=== PATIENT | female | born 1955 | race Caucasian/White ===

== ENCOUNTER 2016-12-31 11:10 | Emergency (ER) | payer OTHER, MEDICARE ==
[~2016-12-31] VITALS: Ht 157.5 cm; Wt 45.4 kg
[~2016-12-31 11:10] MED LIST: ADVAIR 250-501 EACH INH; ADVAIR DISKUS 21 DSK INH; ALBUTEROL0.09 MG/A1 INH; ALENDRONATE SOD70 MG PO; AMOX-CLAV 875-1 EACH PO; AVELOX400 MG PO; BACTRIM 400-801 EACH PO; BACTROBAN15 GM TOP; BETAMETHASONE V TOP; BYSTOLIC 5MG5 MG PO; CELEBREX100 M1 PO; CELEBREX100 MG PO; CHANTIX 1 MG1 MG PO; CLOBETASOL PROP15 GM; CLOBETASOL PROP15 GM TOP; CLONAZEPAM0.5 MG PO; CLOTRIMAZOLE-BE15 GM TOP; CYCLOBENZAPRINE10 MG PO; DEXILANT60 M1 PO; DEXILANT60 MG PO; DICYCLOMINE HCL10 M1 PO; DIVALPROEX SOD250 M3 PO; DOXYCYCLINE HY100 M2 PO; ENDOCET 325 MG-1 TA1 PO; FLUOXETINE HYDR20 MG PO; GABAPENTIN TAB600 MG PO; GABAPENTIN300 M2 PO; HYDROCODONE/APA1 TAB PO; HYDROXYZINE HCL25 M2 PO; IMITREX50 MG PO; IPRAT-ALBUT 0.5-3 ML INH; KEFLEX500 MG PO; LEVAQUIN 500MG500 MG PO; LEVAQUIN500 MG PO; LISINOPRIL10 M1 PO; LYRICA150 M1 PO; MELOXICAM7.5 M1 PO; METOPROLOL TART50 MG PO; MIRALAX17 GM PO; MIRAPEX 0.25M0.25 MG PO; MONTELUKAST SOD10 M1 PO; MOVANTIK25 M1 PO; MS CONTIN30 MG PO; NEURONTIN300 M1 PO; NEURONTIN300 MG PO; NORCO 10-325 T1 EACH PO; NORCO 325 MG-101 TAB PO; OLANZAPINE5 MG PO; OPANA ER10 M1 PO; PERCOCET 325 MG1 TA2 PO; PREDNISONE 10MG10 M1 PO; PREDNISONE 20MG20 MG PO; PREDNISONE10 M2 PO; PREMARIN30 GM TOP; PREMARIN30 GM VAG; PROAIR HFA0.09 MG/Ac; PROAIR HFA8.5 GM INH; PROCTOSOL-HC28.35 GM RC; REMERON15 M2 PO; REMERON30 M1 PO; SIMVASTATIN20 M2 PO; SIMVASTATIN20 MG PO; SINGULAIR10 MG PO; SPIRIVA1 PUF INH; SYMBICORT 80/4.1 PUF INH; TEMOVATE TOP; TIZANIDINE HCL2 M1 PO; TRIAMCINOLONE A15 G1 TOP; VIBRAMYCIN 100100 MG PO; VOLTAREN100 GM TOP; ZOHYDRO ER10 MG PO; ZYPREXA5 MG PO
--- NOTE | 2016-12-31 12:10 | ED GENERAL ADULT ---
History of Present Illness General Chief Complaint: Fall Stated Complaint: FALL ? BROKEN NOSE Source: patient Exam Limitations: poor historian Vital Signs & Intake/Output Vital Signs & Intake/Output Vital Signs Date Time Temp Pulse Resp B/P Pulse O2 O2 Flow FiO2 Ox Delivery Rate 12/31 1544 99.2 74 18 150/98 98 Room Air ED Intake and Output 01/01 0000 12/31 1200 Intake Total Output Total Balance Patient 99 lb 15.99 oz Weight Allergies Coded Allergies: Penicillins (Intermediate, HEADACHE AND ITCHY 02/04/16) Sulfa (Sulfonamide Antibiotics) (Intermediate, HEADACHE AND ITCHY 02/04/16) aspirin (Intermediate, ASTHMA 02/04/16) erythromycin base (Intermediate, HIVES 02/04/16) latex (Intermediate, ITCHY AND WEEPY SORES 02/04/16) streptomycin (Intermediate, HEADACHE AND ITCHY 02/04/16) tetanus toxoid, adsorbed (Intermediate, I WAS FREEZING 02/04/16) Reconcile Medications Albuterol Sulfate (Proair Hfa) 8.5 GM HFA.AER.AD 2 PUF INH 4 TIMES/DAY PRN COPD (Reported) Alendronate Sodium 70 MG TABLET 1 TAB PO AppTrigger (Reported) in the morning, at least 30 minutes before the first food, beverage, or medication of the day Amoxicillin/Clavulanate Potass (Amox-Clav 875-125 MG Tablet) 875 MG-125 MG TABLET 1 TAB PO BID PNEUMONIA Betamethasone Valerate 60 ML LOTION 1 ZURDO TOP AD PRN ITCHING (Reported) Dexlansoprazole (Dexilant) 60 MG CAP.DR.BP 1 CAP PO QAM GI (Reported) Diclofenac Sodium (Voltaren) 100 GM GEL..GRAM. 1 GM TOP Q8H MUSCLES/JOINTS ( Reported) apply to affected area(s) Dicyclomine HCl 10 MG CAPSULE 1 CAP PO TID PRN GI (Reported) Divalproex Sodium (Divalproex Sodium ER) 250 MG TAB.ER.24H 1 TAB PO BID MOOD DISORDER (Reported) Estrogens, Conjugated (Premarin) 30 GM CREAM.APPL 1 ZURDO TOP QPM HRT ( Reported) FLUTICASONE/SALMETEROL (Advair 250-50 Diskus) 1 DSK DSK 1 PUFF INH BID ASTHMA/ COPD (Reported) Gabapentin (Neurontin) 300 MG CAPSULE 1 CAP PO TID chronic pain (Reported) Hydrocodone/Acetaminophen ([place] 10-325 Tablet) 1 EACH TABLET 2 TAB PO BID PAIN (Reported) Hydrocodone/Acetaminophen ([place] 10-325 Tablet) 1 EACH TABLET 1 TAB PO DAILY PRN pain (Reported) Hydrocortisone (Proctosol-Hc) 28.35 GM CREAM.APPL 1 ZURDO RC AD PRN HEMORRHOIDS (Reported) apply to affected area(s) Hydroxyzine HCl 25 MG TABLET 2 TAB PO Q8H PRN ITCHING (Reported) Ipratropium/Albuterol Sulfate (Iprat-Albut 0.5-3(2.5) MG/3 Ml) 3 ML AMPUL.NEB 1 AMP INH DAILY PRN COPD (Reported) Lisinopril 10 MG TABLET 1 TAB PO DAILY BP (Reported) Meloxicam 7.5 MG TABLET 1 TAB PO DAILY ANTI-INFLAMMATORY/PAIN (Reported) Mirtazapine (Remeron) 15 MG TABLET 1 TAB PO QPM SLEEP (Reported) Montelukast Sodium 10 MG TABLET 1 TAB PO QPM ALLERGIES/RESPIRATORY (Reported) Naloxegol Oxalate (Movantik) 25 MG TABLET 1 TAB PO DAILY GI (Reported) Oxymorphone HCl (Opana ER) 10 MG TAB.ER.12H 1 TAB PO Q8H PAIN (Reported) Polyethylene Glycol 3350 (Miralax) 17 GRAM/DOSE POWDER 17 GM PO DAILY STOOL SOFTENER (Reported) mix with water, juice, soda, coffee or tea Pramipexole Dihydrochloride Mo (Mirapex 0.25MG) 0.25 MG TABLET 1 TAB PO QPM RESTLESS LEGS (Reported) Reason to Stop at ADM: confusion, visual hallucination Prednisone 10 MG TABLET 1 TAB PO AD COPD exacerbation please take 6 tablets daily on 11/07/16 please take 5 tablets daily from 11/08/16 - 11/10/16 please take 4 tablets daily from 11/11/16 - 11/13/16 please take 3 tablets daily from 11/14/16 - 11/16/16 please take 2 tablets daily from 11/17/16 - 11/19/16 please take 1 tablet daily from 11/20/16 - 11/22/16 then stop Pregabalin (Lyrica) 150 MG CAPSULE 1 CAP PO BID NERVE PAIN (Reported) Simvastatin (Simvastatin*) 20 MG TABLET 1 TAB PO QPM CHOLESTEROL (Reported) Sumatriptan Succinate (Imitrex) 50 MG TAB 1 TAB PO AD PRN MIGRAINES (Reported ) Tiotropium [place] (Spiriva) 18 MCG CAP.W.DEV 1 PUFF INH DAILY ASTHMA/COPD ( Reported) Tizanidine HCl 2 MG TABLET 2.5 TAB PO AD MUSCLE RELAXER (Reported) Triamcinolone Acetonide 15 GM CREAM..G. 1 ZURDO TOP 4 TIMES/DAY SORES (Reported ) Triage Note: PT TO ED WITH C/O NOT SLEEPING AND THEN FALLING ASLEEP ON THE TOILET AND BANGING MY HEAD, LAST NIGHT "I SLEPT ON THE BATHROOM FLOOR, THEN I COULDN'T GET UP, BANGED MY NOSE". Triage Nurses Notes Reviewed? yes Onset: Abrupt Duration: day(s): Timing: recent history HPI: 12/31/16 1 PM 61-year-old female presents to the emergency department with increased falling and head trauma. The patient's been sleepy and has fallen down. She hit her nose yesterday and is complaining of pain and a headache. The onset of the symptoms were abrupt, the duration was just past 24 hours, the severity is significant as her symptoms required her to come to the emergency department for care. She has a past psychiatric history. Past History Travel History Traveled to [place] past 21 day No Medical History Any Pertinent Medical History? 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 History of MRSA: Yes History of VRE: No History of CDIFF: No Pneumonia Vaccine: 02/25/16 Influenza Vaccine: 07/29/16 Surgical History Surgical History: HOWIE SCREW R HEEL PIN R WRIST R HIP/GIRDLE IMPLANT Psychosocial History Who do you live with Patient/Self Services at Home None What is your primary language [place] Tobacco Use: Current Daily Use Daily Tobacco Use Amount/Type: => 5 Cigarettes daily ETOH Use: denies use Illicit Drug Use: denies illicit drug use Family History Family History, If Any: MOTHER Cervical cancer FH: breast cancer FHx: thyroid disease FATHER Osteoarthritis SISTER Family hx-psychiatric condition Hx Contributory? No Review of Systems Review of Systems Constitutional: Denies: fever. EENTM: Denies: visual changes. Respiratory: Denies: short of breath. Cardiovascular: Denies: chest pain. GI: Denies: abdominal pain. Genitourinary: Reports: no symptoms. Musculoskeletal: Reports: no symptoms. Skin: Reports: see HPI. Neurological/Psychological: Reports: see HPI, headache. Hematologic/Endocrine: Denies: bruising, bleeding. Physical Exam Physical Exam General Appearance: sleepy on presentation Head: swelling, nasal area, no septal hematoma Eyes: Bilateral: normal appearance, PERRL, EOMI. Ears, Nose, Throat: normal pharynx, swelling around the nose Neck: normal inspection, supple, full range of motion, no neck pain or midline tenderness. free range of motion of the cervical spine. Respiratory: normal breath sounds, chest non-tender, no respiratory distress Cardiovascular: regular rate/rhythm Peripheral Pulses: 4+ radial (R), 4+ radial (L) Gastrointestinal: non-tender Back: normal range of motion Extremities: normal inspection Neurologic/Psych: awake, oriented x 3 Skin: intact, normal color, warm/dry Core Measures ACS in differential dx? No CVA/TIA Diagnosis: No Severe Sepsis Present: No Septic Shock Present: No Progress Differential Diagnoses I considered the following diagnoses in my evaluation of the patient: [ adverse drug effect, concussion, intracranial bleed, fracture] Plan of Care: Orders Procedure Date/time Status URINE DRUG SCREEN FOR ER ONLY 12/31 1255 Complete TROPONIN LEVEL 12/31 1255 Complete ETHANOL 12/31 1255 Complete COMPREHENSIVE METABOLIC PANEL 12/31 1255 Complete CBC WITHOUT DIFFERENTIAL 12/31 1255 Complete Laboratory Tests 12/31/16 1320: Anion Gap 8, Estimated GFR 50 L, BUN/Creatinine Ratio 25.5 H, Glucose 109 H, Calcium 8.5, Total Bilirubin 0.4, AST 44 H, ALT 39, Alkaline Phosphatase 54, Troponin I < 0.01, Total Protein 6.2 L, Albumin 3.6, Globulin 2.6, Albumin/ Globulin Ratio 1.4, CBC w Diff NO MAN DIFF REQ, RBC 4.05 L, MCV 84.1, MCH 28.0, RDW 16.0 H, MPV 7.1 L, Gran % 72.5, Lymphocytes % 17.3 L, Monocytes % 6.8, Eosinophils % 2.7, Basophils % 0.7, Absolute Granulocytes 3.9, Absolute Lymphocytes 0.9 L, Absolute Monocytes 0.4, Absolute Eosinophils 0.1, Absolute Basophils 0, PUBS MCHC 33.3, Serum Alcohol < 10.0 12/31/16 1312: Urine Opiates Screen 2122.00 H, Methadone Screen < 40, Barbiturate Screen < 60, Ur Phencyclidine Scrn < 6.00, Amphetamines Screen < 100, U Benzodiazepines Scrn < 85, Urine Cocaine Screen < 50, Urine Cannabis Screen < 5.00 Initial ED EKG: none Departure Departure Disposition: HOME OR SELF CARE Condition: Stable Clinical Impression Primary Impression: Head injury Secondary Impressions: Nasal contusion Referrals: FELY VICKERS MD (PCP/Family) Departure Forms: Customer Survey General Discharge Information Comments IMPRESSION: There is no acute intracranial hemorrhage. A few chronic small vessel ischemic changes are visualized within the periventricular white matter. No evidence of acute territorial infarct. There is focal swelling of the right frontal scalp. No acute maxillofacial fracture. DICTATED BY: TIGIST MEDINA MD DATE/TIME DICTATED:12/31/161415 SURVEILLANCE AGENT:NAYELY DATE/TIME TRANSCRIBED:12/31/161415 CONFIDENTIAL, DO NOT COPY WITHOUT APPROPRIATE AUTHORIZATION. <Electronically signed in Other Vendor System> SIGNED BY: TIGIST MEDINA MD 12/31 CT is negative labs unremarkable other than a significantly elevated urine toxicology level for opiates. The patient is awake and alert and oriented 3 reevaluation. I reviewed the results with the patient she will follow-up with her doctor and pain specialist this week Critical Care Note Critical Care Note Critical Care Time: non-applicable
[2016-12-31 13:53] LABS: ABSOLUTE BASOPHIL COUNT 0 /CUMM (0.0-0.2); ABSOLUTE EOSINOPHIL COUNT 0.1 /CUMM (0.0-0.7); ABSOLUTE GRANULOCYTE CT 3.9 /CUMM (1.4-6.5); ABSOLUTE LYMPH COUNT 0.9 /CUMM (1.2-3.4); ABSOLUTE MONOCYTE COUNT 0.4 /CUMM (0.10-0.60); BASOPHIL % 0.7 % (0.0-2.0); EOSINOPHIL % 2.7 % (0-5); GRANULOCYTE % 72.5 % (42.2-75.2); HEMATOCRIT 34.1 % (37-47); MEAN CORPUSCULAR HGB CONC 33.3 G/DL (33.0-37.0); MEAN CORPUSCULAR VOLUME 84.1 FL (81.0-99.0); MEAN PLATELET VOLUME 7.1 FL (7.4-10.4); PLATELET COUNT 347 /CUMM (130-400); RED BLOOD CELL CT 4.05 /CUMM (4.20-5.40); WHITE BLOOD CELL COUNT 5.4 /CUMM (4.8-10.8)
--- NOTE | 2016-12-31 14:26 | CT SCAN REPORT ---
EXAMINATION: CT HEAD AND FACE. CLINICAL INFORMATION: Fall. Evaluate for intracranial hemorrhage. COMPARISON: CT head 08/12/2016. TECHNIQUE: Shoes Hand Sewer images were obtained. CT acquisition of the head and face was performed without intravenous administration of contrast. Data was reformatted into multiplanar images at the acquisition workstation. DLP: 1097.35 mGy-cm. FINDINGS: Head: There is no acute intracranial hemorrhage or abnormal extra-axial collection. No intracranial mass effect or midline shift. Lateral and third ventricles are normal. No hydrocephalus. Larios-white matter differentiation is grossly preserved and there is no evidence of acute territorial infarct. Stimulator electrodes are visualized within the suboccipital region. There is mild focal swelling in the frontal region. Face: Globes are symmetric. There is no retrobulbar hematoma or inflammation. Lamina papyracea and orbital floors are intact. Orbital apices are unremarkable. The nasal bones, zygomatic arches, and pterygoid processes are intact. There is no acute mandibular fracture. There is moderate mucosal thickening within the left maxillary sinus. Chronic changes of a left maxillary uncinectomy. The remainder of the paranasal sinuses are well-aerated. IMPRESSION: There is no acute intracranial hemorrhage. A few chronic small vessel ischemic changes are visualized within the periventricular white matter. No evidence of acute territorial infarct. There is focal swelling of the right frontal scalp. No acute maxillofacial fracture.
[2016-12-31 15:44] VITALS: BP 150/98
[2017-01-21] MEDS ORDERED: GABAPENTIN300 M2 PO (15:45)
[2017-01-21] MEDS ORDERED: HYDROCORTISONE5 M1 PO (15:46)
[2017-01-21] MEDS ORDERED: ADVAIR 250-501 EACH PO (15:47)
[2017-01-21] MEDS ORDERED: CLONAZEPAM0.5 M2 PO (15:48)
[2017-01-21] MEDS ORDERED: SODIUM CHLORIDE PO (15:50)
[2017-01-21] MEDS ORDERED: NORCO PO (15:51)
[2017-01-21] MEDS ORDERED: SERTRALINE HCL25 MG PO (15:52)
[2017-01-21] MEDS ORDERED: OPANA10 M1 PO (15:52)
== END 2016-12-31 15:46 ==
LOC: ERH 11:10
PROVIDERS: Emergency Medicine
DX: S09.90XA Unspecified injury of head, initial encounter (principal); S00.33XA Contusion of nose, initial encounter; W19.XXXA Unspecified fall, initial encounter
CPT/HCPCS: 80307; G0480

== ENCOUNTER 2017-01-26 01:17 | Inpatient (IN) | payer OTHER, MEDICARE ==
[~2017-01-26] VITALS: Ht 157.5 cm; Wt 45.4 kg
[~2017-01-26 01:17] MED LIST changes: +ADVAIR 250-501 EACH PO; +CLONAZEPAM0.5 M2 PO; +HYDROCORTISONE5 M1 PO; +NORCO PO; +OPANA10 M1 PO; +SERTRALINE HCL25 MG PO; +SODIUM CHLORIDE PO
--- NOTE | 2017-01-26 08:18 | Operative Report ---
Operative/Inv Procedure Report Surgery Date: 01/26/17 Name of Procedure: Removal of bone spur right foot, exostectomy Pre-Operative Diagnosis: Exostosis right foot Post-Operative Diagnosis: Same Estimated Blood Loss: scant Surgeon/Research Librarian: CHECO Anesthesia: general endotracheal tube IV Fluids: See anesthesia record Implants: None Drains: None Specimens: Bone right foot Complications: None Condition: Stable Operative Indication: Patient is a 60-year-old female whose been bothered by a bone spur on the medial aspect of her right foot for years. She was to have it removed due to pain with shoewear. Risks and benefits the procedure discussed the patient detail and she wished to proceed. Operative/Procedure Note Note: Once informed consent was obtained and the correct limb was identified patient brought to operative placed on table supine position. Administration of general endotracheal anesthesia the right foot was prepped and draped in sterile fashion. To begin the procedure a skin incision was made directly over the exostosis. Sharp dissection was carried down through the skin. The exostosis was easily palpated and using osteotome was removed without complication. The wound was irrigated. A few days tissues closed with 3-0 Vicryl sutures and skin was closed with 3-0 nylon interrupted sutures. Sterile dressing was applied and the patient was awakened taken recovery in stable condition.
--- NOTE | 2017-01-26 14:23 | Admission Core Measures ---
Admission Lab Results I reviewed the following labs: Laboratory Tests 01/26 01/26 01/26 UNK UNK UNK Chemistry Sodium (137 - 145 mmol/L) Pending 135 L Cancelled Potassium (3.5 - 5.1 mmol/L) Pending 3.7 Cancelled Chloride (98 - 107 mmol/L) Pending 104 Cancelled Carbon Dioxide (22 - 30 mmol/L) Pending 25 Cancelled Anion Gap (5 - 16) Pending 6 Cancelled BUN Pending Creatinine Pending BUN/Creatinine Ratio Pending Admission Meds I reviewed the following Meds: Current Medications Sig/Isacc Start time Last Medication Dose Stop Time Status Admin Acetaminophen/ 4 TAB BID 01/26 220 UNVr Hydrocodone Bitart (Vicodin) Albuterol Sulfate 2 PUF 4 TIMES/DAY PRN 01/26 1345 UNVr (Ventolin) Atorvastatin Calcium 10 MG 1700 01/26 1700 UNVr (Lipitor) Budesonide/ 2 PUF BID 01/26 220 UNVr Formoterol Fumarate (Symbicort) Clonazepam 0.5 MG .[NIGHTLY] 01/26 1400 UNVr (KlonoPIN) 02/02 1359 Dicyclomine HCl 10 MG TID PRN 01/26 1400 UNVr (Bentyl) Divalproex Sodium 250 MG BID 01/26 2200 UNVr (Depakote ER) Gabapentin 300 MG TID 01/26 1600 UNVr (Neurontin) Gabapentin 300 MG TID 01/26 1600 UNVr (Neurontin) Hydrocortisone 5 MG DAILY 01/27 1000 UNVr (Hydrocortisone) Hydromorphone HCl 50 MG Q24H PRN 01/26 1430 AC (Dilaudid) Sodium Chloride 45 ML (Normal Saline 50ML Bag) Hydromorphone HCl 6 MG Q6P PRN 01/26 1415 UNVr (Dilaudid) Lisinopril 10 MG DAILY 01/27 1000 UNVr (Prinivil) Montelukast Sodium 10 MG QPM 01/26 2200 UNVr (Singulair) Omeprazole 40 MG DAILY AC 01/27 0700 UNVr (Prilosec) Polyethylene Glycol 17 GM DAILY 01/27 1000 UNVr (Miralax) Pregabalin 150 MG BID 01/26 2200 UNVr (Lyrica) Sertraline HCl 25 MG DAILY 01/27 1000 UNVr (Zoloft) Sumatriptan Succinate 50 MG DAILY NEEDED 01/26 1400 UNVr (Imitrex Tab) Tiotropium [place] 1 PUF DAILY 01/27 1000 UNVr (Spiriva) Tizanidine HCl 5 MG .[AD] 01/26 1400 UNVr (Zanaflex) Acute Coronary Syndrome Inclusion Criteria ACS Diagnosis No Inpatient Core Measures LDL Reminder: If No, please order W/I first 24hr of stay Congestive Heart Failure Inclusion Criteria CHF Diagnosis No Cerebrovascular accident Inclusion Criteria CVA/TIA Diagnosis No Inpatient Core Measures Bedside Swallow Eval Reminder: If BSE failed, place ST order Antithrombotic Reminder: Order Antithrombotic Medication by end of day 2 Antithrombotic Reminder: Document Reason Antithrombotic Not ordered by end of day 2 AFIB/Flutter Reminder: If Present, add to problem list AFIB/Flutter Reminder: Order Anticoag Medication for pts with AFIB/Flutter Atherosclerosis Reminder: If Present, add to problem list LDL Reminder: If No, please order W/I first 24hr of stay PT Order Reminder: If No, please order Venous thromboembolism Inpatient Core Measures VTE Risk Factors: Age > 40, Surgery VTE Prophylaxis Ordered Inpt Mechanical (ALPS/TEDS) No [facility] VTE prophylaxis d/t No contraindications No VTE Pharm Prophylaxis d/t Surgical contraindication Inclusion Criteria - Per Current guidelines, there needs to be overlap - treatment for the first 5 days of Warfarin therapy. - Parenteral Anticoagulation (IV or SC) needs to be - given along with Warfarin therapy. VTE Diagnosis No VTE Type NONE VTE Confirmed by (Test) NONE Problem List As ranked by this Provider includes Assessment & Plan 1. Cervical spinal stenosis HOME MEDS Home Med List Albuterol Sulfate (Proair Hfa) 8.5 GM HFA.AER.AD 2 PUF INH 4 TIMES/DAY PRN COPD (Reported) Alendronate Sodium 70 MG TABLET 1 TAB PO QMON BONE HEALTH (Reported) Betamethasone Valerate 60 ML LOTION 1 ZURDO TOP AD PRN ITCHING (Reported) Clonazepam 0.5 MG TABLET 1 TAB PO NIGHTLY SLEEP (Reported) Dexlansoprazole (Dexilant) 60 MG CAP.DR.BP 1 CAP PO QAM GI (Reported) Diclofenac Sodium (Voltaren) 100 GM GEL..GRAM. 1 GM TOP Q8H MUSCLES/JOINTS ( Reported) Dicyclomine HCl 10 MG CAPSULE 1 CAP PO TID PRN GI (Reported) Divalproex Sodium (Divalproex Sodium ER) 250 MG TAB.ER.24H 1 TAB PO BID MOOD DISORDER (Reported) Estrogens, Conjugated (Premarin) 30 GM CREAM.APPL 1 ZURDO TOP QPM HRT ( Reported) FLUTICASONE/SALMETEROL (Advair 250-50 Diskus) 1 DSK DSK 1 PUFF INH BID ASTHMA/ COPD (Reported) Fluticasone/Salmeterol ([place]air 250-50 Diskus) 250 MCG-50 MCG/DOSE BLST.W.DEV 1 PUFF PO BID COPD (Reported) Gabapentin (Neurontin) 300 MG CAPSULE 1 CAP PO TID chronic pain (Reported) Gabapentin 300 MG CAPSULE 1 TAB PO TID MENTAL HEALTH (Reported) Hydrocodone/Acetaminophen ([place] 10-325 Tablet) 1 EACH TABLET 2 TAB PO BID PAIN (Reported) Hydrocodone/Acetaminophen ([place] 10-325 Tablet) 1 EACH TABLET 1 TAB PO DAILY PRN pain (Reported) Hydrocortisone (Proctosol-Hc) 28.35 GM CREAM.APPL 1 ZURDO RC AD PRN HEMORRHOIDS (Reported) Hydrocortisone 5 MG TABLET 1 TAB PO DAILY PITUITARY (Reported) Hydroxyzine HCl 25 MG TABLET 2 TAB PO Q8H PRN ITCHING (Reported) Ipratropium/Albuterol Sulfate (Iprat-Albut 0.5-3(2.5) MG/3 Ml) 3 ML AMPUL.NEB 1 AMP INH DAILY PRN COPD (Reported) Lisinopril 10 MG TABLET 1 TAB PO DAILY BP (Reported) Meloxicam 7.5 MG TABLET 1 TAB PO DAILY ANTI-INFLAMMATORY/PAIN (Reported) Mirtazapine (Remeron) 15 MG TABLET 1 TAB PO QPM SLEEP (Reported) Montelukast Sodium 10 MG TABLET 1 TAB PO QPM ALLERGIES/RESPIRATORY (Reported) Naloxegol Oxalate (Movantik) 25 MG TABLET 1 TAB PO DAILY GI (Reported) [NORCO] 1 TAB PO BID PAIN (Reported) Oxymorphone HCl (Opana) 10 MG TABLET 1 TAB PO EVERY 6 PRN PAIN (Reported) Polyethylene Glycol 3350 (Miralax) 17 GRAM/DOSE POWDER 17 GM PO DAILY STOOL SOFTENER (Reported) Pregabalin (Lyrica) 150 MG CAPSULE 1 CAP PO BID NERVE PAIN (Reported) Sertraline HCl 25 MG TABLET 1 TAB PO DAILY DEPRESSION (Reported) Simvastatin (Simvastatin*) 20 MG TABLET 1 TAB PO QPM CHOLESTEROL (Reported) [SODIUM CHLORIDE] 1,000 MG ORA 1 TAB PO BID HYPONATREMIA (Reported) Sumatriptan Succinate (Imitrex) 50 MG TAB 1 TAB PO AD PRN MIGRAINES (Reported ) Tiotropium [place] (Spiriva) 18 MCG CAP.W.DEV 1 PUFF INH DAILY ASTHMA/COPD ( Reported) Tizanidine HCl 2 MG TABLET 2.5 TAB PO AD MUSCLE RELAXER (Reported) Triamcinolone Acetonide 15 GM CREAM..G. 1 ZURDO TOP 4 TIMES/DAY SORES (Reported )
--- NOTE | 2017-01-26 15:30 | Cons- Endocrinology ---
General Information and HPI Consulting Request Date of Consult: 01/26/17 Requested By: surgical team Reason for Consult: management of adrenal insufficiency Source of Information: patient, old records Exam Limitations: no limitations History of Present Illness: Patient has had a long standing history of hyponatremia and was diagnosed with secondary adrenal insufficiency in 11/2016. She has had history of chronic steroid uses due to asthma and her skin condition. In addition, patient is on pain medication chronically. On 12/17/2016, patient was put on Hydrocortisone replacement--- Hydrocortisone 15 mg at 8 am and 5 mg at 4 pm. She underwent cervical spinal surgery today. Now she is in PACU. Patient received stress dose of steroid-- Hydrocortisone 100 mg iv right before surgery. Her BP has been stable. Blood work was done twice so far. Her sodium level remains 135. Patient did have significant amount of urine during operation( received 2 liters of IVF and UOP was about 2 liters). Patient complains of having pain due to operation. Allergies/Medications Allergies: Coded Allergies: Penicillins (Intermediate, HEADACHE AND ITCHY 02/04/16) Sulfa (Sulfonamide Antibiotics) (Intermediate, HEADACHE AND ITCHY 02/04/16) aspirin (Intermediate, ASTHMA 02/04/16) erythromycin base (Intermediate, HIVES 02/04/16) latex (Intermediate, ITCHY AND WEEPY SORES 02/04/16) streptomycin (Intermediate, HEADACHE AND ITCHY 02/04/16) tetanus toxoid, adsorbed (Intermediate, I WAS FREEZING 02/04/16) Uncoded Allergies: TALCUM POWDER (Intermediate, RASH 01/21/17) Home Med List: Albuterol Sulfate (Proair Hfa) 8.5 GM HFA.AER.AD 2 PUF INH 4 TIMES/DAY PRN COPD (Reported) Alendronate Sodium 70 MG TABLET 1 TAB PO [facility] [employer] (Reported) in the morning, at least 30 minutes before the first food, beverage, or medication of the day Betamethasone Valerate 60 ML LOTION 1 ZURDO TOP AD PRN ITCHING (Reported) Clonazepam 0.5 MG TABLET 1 TAB PO NIGHTLY SLEEP (Reported) Dexlansoprazole (Dexilant) 60 MG CAP.DR.BP 1 CAP PO QAM GI (Reported) Diclofenac Sodium (Voltaren) 100 GM GEL..GRAM. 1 GM TOP Q8H MUSCLES/JOINTS ( Reported) apply to affected area(s) Dicyclomine HCl 10 MG CAPSULE 1 CAP PO TID PRN GI (Reported) Divalproex Sodium (Divalproex Sodium ER) 250 MG TAB.ER.24H 1 TAB PO BID MOOD DISORDER (Reported) Estrogens, Conjugated (Premarin) 30 GM CREAM.APPL 1 ZURDO TOP QPM HRT ( Reported) FLUTICASONE/SALMETEROL (Advair 250-50 Diskus) 1 DSK DSK 1 PUFF INH BID ASTHMA/ COPD (Reported) Fluticasone/Salmeterol (Advair 250-50 Diskus) 250 MCG-50 MCG/DOSE BLST.W.DEV 1 PUFF PO BID COPD (Reported) Gabapentin (Neurontin) 300 MG CAPSULE 1 CAP PO TID chronic pain (Reported) Gabapentin 300 MG CAPSULE 1 TAB PO TID MENTAL HEALTH (Reported) Hydrocodone/Acetaminophen (Mulino 10-325 Tablet) 1 EACH TABLET 2 TAB PO BID PAIN (Reported) Hydrocodone/Acetaminophen (Mulino 10-325 Tablet) 1 EACH TABLET 1 TAB PO DAILY PRN pain (Reported) Hydrocortisone (Proctosol-Hc) 28.35 GM CREAM.APPL 1 ZURDO RC AD PRN HEMORRHOIDS (Reported) apply to affected area(s) Hydrocortisone 5 MG TABLET 1 TAB PO DAILY PITUITARY (Reported) Hydroxyzine HCl 25 MG TABLET 2 TAB PO Q8H PRN ITCHING (Reported) Ipratropium/Albuterol Sulfate (Iprat-Albut 0.5-3(2.5) MG/3 Ml) 3 ML AMPUL.NEB 1 AMP INH DAILY PRN COPD (Reported) Lisinopril 10 MG TABLET 1 TAB PO DAILY BP (Reported) Meloxicam 7.5 MG TABLET 1 TAB PO DAILY ANTI-INFLAMMATORY/PAIN (Reported) Mirtazapine (Remeron) 15 MG TABLET 1 TAB PO QPM SLEEP (Reported) Montelukast Sodium 10 MG TABLET 1 TAB PO QPM ALLERGIES/RESPIRATORY (Reported) Naloxegol Oxalate (Movantik) 25 MG TABLET 1 TAB PO DAILY GI (Reported) [NORCO] 1 TAB PO BID PAIN (Reported) Oxymorphone HCl (Opana) 10 MG TABLET 1 TAB PO EVERY 6 PRN PAIN (Reported) Polyethylene Glycol 3350 (Miralax) 17 GRAM/DOSE POWDER 17 GM PO DAILY STOOL SOFTENER (Reported) mix with water, juice, soda, coffee or tea Pregabalin (Lyrica) 150 MG CAPSULE 1 CAP PO BID NERVE PAIN (Reported) Sertraline HCl 25 MG TABLET 1 TAB PO DAILY DEPRESSION (Reported) Simvastatin (Simvastatin*) 20 MG TABLET 1 TAB PO QPM CHOLESTEROL (Reported) [SODIUM CHLORIDE] 1,000 MG ORA 1 TAB PO BID HYPONATREMIA (Reported) Sumatriptan Succinate (Imitrex) 50 MG TAB 1 TAB PO AD PRN MIGRAINES (Reported ) Tiotropium [place] (Spiriva) 18 MCG CAP.W.DEV 1 PUFF INH DAILY ASTHMA/COPD ( Reported) Tizanidine HCl 2 MG TABLET 2.5 TAB PO AD MUSCLE RELAXER (Reported) Triamcinolone Acetonide 15 GM CREAM..G. 1 ZURDO TOP 4 TIMES/DAY SORES (Reported ) Review of Systems Review of Systems Constitutional: Reports: see HPI. Cardiovascular: Denies: chest pain, palpitations. Respiratory: Denies: short of breath. Musculoskeletal: Reports: see HPI (neck pain due to surgery). Hematologic/Endocrine: Reports: polyuria. 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 Surgical History Surgical History: HOWIE SCREW R HEEL PIN R WRIST R HIP/GIRDLE IMPLANT Family History Relations & Conditions If Any: MOTHER Cervical cancer FH: breast cancer FHx: thyroid disease FATHER Osteoarthritis SISTER Family hx-psychiatric condition Psychosocial History Who Do You Live With? self Services at Home: None Primary Language: Pakistani Smoking Status: Unknown If Ever Smoked Living Will? yes Power of Rag Room Supervisor/HCP? yes Name of POA/HCP: In chart Functional Ability ADLs Independent: dressing, eating, toileting, bathing. Ambulation: independent IADLs Independent: telephone, transportation, medication admin. Exam & Diagnostic Data Last 24 Hrs of Vital Signs/I&O IN PACU, her BP 112/70; HR 88. Physical Exam General Appearance: alert, awake Respiratory: lungs clear Cardiovascular: regular rate/rhythm Gastrointestinal: soft, non-tender Extremities: no edema Assessment/Plan Assessment/Plan Patient has had a long standing history of hyponatremia and was diagnosed with secondary adrenal insufficiency in 11/2016. She has had history of chronic steroid uses due to asthma and her skin condition. In addition, patient is on pain medication chronically. On 12/17/2016, patient was put on Hydrocortisone replacement--- Hydrocortisone 15 mg at 8 am and 5 mg at 4 pm. She underwent cervical spinal surgery this morning. Patient received stress dose of steroid-- Hydrocortisone 100 mg iv right before surgery. Now she is in PACU. Her vital signs have been stable. Her sodium level remains 135. Plan: 1. continue stress dose of steroid---Hydrocortisone 100 mg iv every 8 hours today; 2. agree with current IVF-- NS at 75 ml/hour; 3. monitor IN and out. 4. monitor electrolytes at 8 pm tonight and tomorrow am; Please let me know if her electrolytes are off. rosita follow. Consult Acknowledgment - Thank you for your consult request.
[2017-01-26 15:35] VITALS: BP 139/80; BP 155/80
--- NOTE | 2017-01-26 15:45 | RADIOLOGY REPORT ---
EXAMINATION: XR CERVICAL SPINE CLINICAL INFORMATION: C-spine fusion C3-C4. COMPARISON: 01/26/2016 TECHNIQUE: C-arm equipment was dedicated to the operating room for the performance of the cervical spine fusion. Several spot films were obtained and are archived in PACS. FLUOROSCOPY TIME: 0.5 minutes. FINDINGS: Serial images demonstrate placement of a anterior spinal fusion plate with interlocking screws from the C3 level down to C5. Intervertebral disc blocks are in place. Alignment is anatomic on the limited lateral view provided. IMPRESSION: Anterior cervical spine fusion from C3 to C5.
--- NOTE | 2017-01-26 17:16 | PN- Orthopedic ---
Subjective Subjective: Is reporting no acute postoperative events. She states that she has continued discomfort in her operative foot, specifically she states that her toes are more sore than her heel. She denies pain to her neck presently. She denies numbness and tingling to her bilateral upper extremities. She denies chest pain, shortness of breath, difficulty breathing. She denies nausea and vomiting. Objective Vital Signs and I&Os Vital Signs Date Time Temp Pulse Resp B/P Pulse O2 O2 Flow FiO2 Ox Delivery Rate 01/27 1108 Room Air 01/27 1107 96 Room Air 01/27 0952 97.9 76 18 122/74 / 0951 97.9 76 18 122/74 96 Room Air Room Air / 0946 76 122/74 / 0600 97.9 72 16 124/70 / 0600 97.9 72 16 124/70 98 Room Air 01/27 0400 71 18 100/61 / 0400 71 18 100/61 99 Nasal 2.0L Cannula 01/27 0200 73 18 122/70 / 0200 98.0 73 18 122/70 99 Nasal 2.0L Cannula 01/27 0000 98.6 74 20 122/70 03/ 0000 99 Nasal 2.0L Cannula 01/26 2309 98.6 74 20 122/70 99 / 2200 98.5 90 18 121/75 03/ 2000 98.5 90 18 121/75 98 Nasal 2.0L Cannula 01/26 1800 98.3 89 18 120/82 03/ 1800 98.3 89 18 120/82 99 Nasal 2.0L Cannula 01/26 1535 98.5 88 18 139/80 99 Nasal 2.0L Cannula 01/26 1535 99 Nasal 2.0L Cannula Intake & Output 01/27 1600 01/27 0800 01/27 0000 01/26 1600 01/26 0800 01/26 0000 Intake Total 1100 850 Output Total 1000 3250 Balance 100 -2400 Intake, IV 600 Intake, Oral 500 850 Output, Urine 1000 3250 Patient 99 lb 15.99 oz Weight Physical Exam: General: Alert and oriented x3, no acute distress Cardiac: RRR, s1s2 Pulm: CTA bilaterally, just complted respiratory therapy Abdomen: Non-tender, non-distended Extremities: Moves all extremities, distal sensation intact. Gross motor intact upper and lower extremities. Skin warm, thin, well perfused. DP pulses palpable bilaterally. Calves soft and non-tender bilaterally. Surgical site: right foot, dressing dry and intact. Neck: dressing dry and intact, hard collar in place. Physical Exam: General: Alert and oriented 3 no acute distress. Cardiac: Regular rhythm and rate, S1-S2 Pulmonary: Bilateral lung sounds clear to auscultation Abdomen: Soft and nontender, nondistended Extremities: Moves all extremities, distal sensations grossly intact. Motor 5 out of 5 in plantar and dorsiflexion. Motor 5 out of 5 in upper extremity grasp bilaterally. Skin warm and well perfused. DP pulses palpable bilaterally. Bilateral calves soft and nontender. Surgical site #1: Right foot, dressing dry and intact. Capillary refills to toes intact and brisk. Surgical site #2: Cervical spine. Dressing dry and intact, hard collar in place. Assessment/Plan Assessment/Plan This is a 61-year-old female with a past medical history of COPD, chronic pain, adrenal insufficiency, hyponatremia. She is postop day 0 status post anterior cervical disc fusion levels C3 to C5, as well as a right calcaneal osteotomy. -Continue home medications, follow Dr. kennedy's recommendations regarding hyponatremic studies. -Pain management per Eber Grier MD to include patient's home dose of medications including Dilaudid 6 mg every 6 hours when necessary, Vicodin 20 mg twice a day, as well as a Dilaudid [employer]. Anticipate Dilaudid [employer] to be discontinued tomorrow morning. -Continue Omalley catheter overnight, plan to discontinue catheter in a.m. pending adequate pain control and patient able to ambulate. -Vancomycin 1 g every 12 hours to be continued for 2 postoperative doses due to patient's colonization of MRSA preoperatively. -Diet can be advanced as tolerated, first meal to start off as soft mechanical, texture can be progressed pending patient's ability to swallow appropriately. -Respiratory therapy ordered, patient may require nebulizer treatment while in hospital. -Activity: Out of bed as desired, physical therapy to see patient tomorrow for discharge planning. Can be weightbearing as tolerated on right heel. -DVT prophylaxis mechanical. ALPS to be worn while in house. Early ambulation recommended. -Anticipate discharge tomorrow, plan for home, case management to see if short- term rehabilitation as necessary or if patient requires home care services. -Discussed case with Dr. Grier and Dr. Up Core Measures/Miscellaneous Venous Thromboembolism VTE Risk Factors: Age > 40, Surgery VTE Contraindications: Hypersensitivity Heparin VTE Prophylaxis Ordered Inpt: Mechanical (ALPS/TEDS) VTE Diagnosis: No VTE Type: NONE VTE Confirmed by (Test): NONE Beta Tee Is Beta Tee a Home Med? No Antibiotics Is Patient on Antibiotics? Yes If Yes: prophylaxis
[2017-01-26 18:00] VITALS: BP 120/82
[2017-01-26 20:00] VITALS: BP 121/75
[2017-01-26 22:00] VITALS: BP 121/75
--- NOTE | 2017-01-26 22:31 | Operative Report ---
Operative/Inv Procedure Report Surgery Date: 01/26/17 Name of Procedure: 1) C3-C4 Anterior Cervical Discectomy, Osteophytectomy, Neural Element Decompression, Disk Space Preparation And Intervertebral (Interbody) Arthrodesis (Cherrie/Jeovanny) 2) C4-C5 Anterior Cervical Discectomy, Osteophytectomy, Neural Element Decompression, Disk Space Preparation And Intervertebral (Interbody) Arthrodesis (Cherrie/Jeovanny) 3) Inferior C5 Anterior Cervical Resection of Large Projecting Osteophyte ( Cherrie/Jeovanny) 4) C3-C4 Anterior Cervical Interbody [employer] Lordotic ASR Machined Cortical-Cancellous Composite Allograft Implant Instrumentation ( Cherrie/Jeovanny) 5) C4-C5 Anterior Cervical Interbody [employer] Lordotic ASR Machined Cortical-Cancellous Composite Allograft Implant Instrumentation ( Cherrie/Richio) 6) C3-C5 Anterior Cervical Transvertebral [employer] [place] Vision Elite Plate-Screw Construct Implant Instrumentation (Cherrie/Jeovanny) 7) C3-C5 Significant Correction, Near-Complete Reversal Of Kyphotic Deformity With Near-Anatomic Restorationism Of Segmental And Regional Cervical Lordotic Alignment Well Beyond The Cumulative Segmental Correction Which Could Be Achieved By Standard Technique Of Instrumented Arthrodesis At Each Operated Motion Segment And Thus Requiring Distinct And Separate Corrective Techniques And Procedural Services (Cherrie/ Jeovanny) 8) C3-C4 Reduction Of Spondylolisthesis Translational And Angular Deformity Not Achievable Using Standard ACDF Techniques (Cherrie/Jeovanny) [Not Separately Coded - Included As Part Of Deformity Correction Procedure Above] 9) C4-C5 Reduction Of Spondylolisthesis Translational And Angular Deformity Not Achievable Using Standard ACDF Techniques (Cherrie/Jeovanny) [Not Separately Coded - Included As Part Of Deformity Correction Procedure Above] 10) C3 Allograft Augmentation Of Anterior Inferior Endplate And Vertebral Body Osteoporotic Fracture Defect (Cherrie) [Not Separately Coded As No Optimal Open Treatment Code Available. Treatment Is Most Similar To Closed Fracture Care Which Will Be Initiated At Surgical Follow-Up] 11) C4 Allograft Augmentation Of Anterior Inferior Endplate And Vertebral Body Osteoporotic Fracture Defect (Christianner) [Not Separately Coded As No Optimal Open Treatment Code Available. Treatment Is Most Similar To Closed Fracture Care Which Will Be Initiated At Surgical Follow-Up] 12) Preparation And Implantation Of Allograft Equivalent Osteopromotive Material (Medtronic Bone Xpanse) Implant (Cherrie) 13) Electrophysiological Neurological Monitoring (EMG, SSEP, Recurrent Laryngeal Nerve and MEP Monitoring) ([place]enoitchner/NeuroAlert) [Not separately coded] Pre-Operative Diagnosis: Preoperative Surgically Treated And Surgically-Relevant Diagnosis List: Primary Surgically Treated Pre-Operative Diagnoses: 1) C3-C4 Upper And C4-C5 Mid- Cervical Spondylosis With Myelopathy 2) C3-C4 And C4-C5 Acquired Static And Dynamic Degenerative Cervical Spondylolisthesis 3) C3-C4 And C4-C5 Upper And Mid- Cervical Spinal Stenosis 4) C3-C4 And C4-C5 Moderate To Severe Cervical Kyphotic Deformity 5) C3-C4 And C4-C5 Upper And Mid- Cervical Spondylosis With Radiculopathy 6) Severe Intractable Activity-Limiting, Incapacitating And Intermittently Debilitating Neck Pain Unresponsive To Comprehensive Course Of Conservative Management 7) Large Anterior C5 Inferior Osteophyte (At C5-C6 Disk Margin) Blocking Required Anterior Instrumentation Additional Primary Surgically Treated Pre-Operative Diagnoses Include Cervical Intervertebral Disc Disorder With Radiculopathy, Cervical Radiculopathy Distinct From Disk Disorders Or Spondylotic Disease, Disc Disorders And Spondylosis Distinct From Radiculopathy, Segmental Instability And Irreducible Subluxation. Secondary Or Indirectly Surgically Treated Diagnoses Include Cervical Intervertebral Disc Disorder With Myelopathy, Myelopathy Distinct From Disk Disorders Or Spondylotic Disease, Upper Extremity Subjective Weakness, Sensory Deficits And Dyscoordination And Facet Arthropathy. Surgically Relevant Diagnoses Not Directly Surgically Treated Include Cervical Severe Osteoporosis, Diffuse Cervical Spinal Arthritis, Spondyloarthropathy, And Diffuse Generalized Arthritis. The Above Diagnoses Not Specified As Primary Surgically Treated Are Listed And Further Detailed In Office Notes And Other Documents. Post-Operative Diagnosis: Same as preoperative diagnosis list with the addition of: Intraoperative Surgically Treated Diagnoses: 1) C3-C4 And C4-C5 Expected Upper And Mid- Cervical Spinal Segmental Intraoperative And Potential Postoperative Instability Requiring Operative Instrumented Stabilization 2) C3 And C4 Vertebral Body Osteoporotic Fractures Requiring Operative Grafting Of Vertebral Body Defect Intraoperative And Postoperative Diagnoses Relevant To Postoperative Care: 1) Anticipated Acute Postoperative Neck Region Pain Requiring Postoperative Narcotic Analgesic Medication Following Extensive Multilevel ACDF With Reduction Of Spondylolisthesis And Deformity Correction 2) Anticipated Acute Postoperative Neck Muscular Spasm Requiring Postoperative Muscle Relaxant Medication Following Extensive Multilevel ACDF With Reduction Of Spondylolisthesis And Deformity Correction 3) Physiologically Impaired Bone Healing Potential Related To Multiple Medical Conditions Strongly Indicating Use Of An External Pulsed Electromagnetic Field Stimulation Device To Optimize Osseous Fusion Formation Diagnoses Defining Postoperative State: 1) C3-C4 And C4-C5 Presence of Cervical Spine Interbody Machined Allograft Implants 2) C3-C4 And C4-C5 Presence of Cervical Spine Anterior Transvertebral Plate- Screw Osseous Stabilization Instrumentation Construct Implant 3) C3-C4 And C4-C5 Acute Anterior Cervical Decompression Postprocedural Status 4) C3-C4 And C4-C5 Cervical Spine (Early) Postprocedural Arthrodesis Status Estimated Blood Loss: 50ml to 100ml Surgeon/Wearing Apparel Folder: AKILAH GRIER MD - Primary Admitting Orthopaedic Surgeon Surgical Providers For Cervical Spine Surgery: Akilah Grier M.D. - Orthopaedic Spine Surgeon (Primary Admitting Surgeon) Jamie Up M.D. - Orthopaedic Surgeon (Wearing Apparel Folder Surgeon) Anesthesia: general endotracheal tube Monitors: Standard general anesthesia and other perioperative monitoring was performed per anesthesia. Standard Intraoperative EMG, SSEP, recurrent laryngeal nerve and MEP electrophysiological monitoring (NeuroAlert) Refer to anesthesia and intraoperative electrophysiological monitoring records for details. IV Fluids: Standard anesthesia fluid management was performed without requirement for additional or emergent fluid resuscitation. Refer to anesthesia records for details. Implants: Implants Placed: Interbody Implants: ProtoStar Lordotic ASR Machined Cortical-Cancellous Composite Structural Allograft Interbody Implants: 1 x 7 mm Height x 14 mm Width x 11 mm Depth At C3-C4 1 x 7 mm Height x 14 mm Width x 11 mm Depth At C4-C5 Anterior Transvertebral Cervical Implants: Medtronic Anterior Cervical [place] Vision Elite (AVE) Plate-Screw Construct: 1 x 40 mm 0-Nyyyualhs-Towue, 6-[address]ole AVE Plate From C3 To C5 2 x 13 mm x 4.5 mm Fixed Angle Self-Tapping (FAST) AVE Screws Bilaterally At C5 2 x 15 mm x 4.0 mm Variable Angle Self-Tapping (VAST) AVE Screws Bilaterally At C4 2 x 15 mm x 4.0 mm Variable Angle Self-Tapping (VAST) AVE Screws Bilaterally At C3 Graft Placed: Structural Cortical-Cancellous Composite Allograft Implants At C3-C4 And C4 -C5 (See Above) [employer] Xpanse Medium-C 9 (8mm x 6mm x 9mm) Divided Equally Between: Osteoporotic Fracture Defect At The Anterior Inferior C3 Vertebral Body Level Osteoporotic Fracture Defect At The Anterior Inferior C4 Vertebral Body Level Urine Output: Refer to anesthesia records for details. Drains: None Specimens: Cervical disc material was sent to pathology for documentation and analysis per hospital protocol. Complications: None Condition: Initial Preoperative Condition: The patients condition was stable to the operating room without vital sign, hemodynamic, cardiopulmonary or other organ system abnormality and without new neurovascular or musculoskeletal functional deficit compared to stable baseline bilateral upper extremity subjective and mild objective weakness, numbness and dyscoordination which was documented in preoperative office notes and orthopaedic admission history and physical report. Her skin in the region of the planned surgical procedure was clear and her upper extremity dermatologic condition appeared to be well controlled on preoperative assessment without erythema, lesions or exudate. The patient had been cleared preoperatively as optimized for surgery (see details in Operative Indications section). There were no significant adverse changes evident in the patients condition between the clearance admission history & physical evaluations and the immediate preoperative assessment. Intraoperative Condition: The patient was stable throughout the procedure without vital sign, cardiopulmonary or other monitoring changes, lability, instability or abnormality. The patient's initial baseline neurophysiological monitoring signals (shortly after general anesthetic induction and prior to incision) were normal except for asymmetrical and increased left shoulder spontaneous EMG activity felt to be consistent with the patients preoperative clinical and radiologic findings. Immediately following discectomy and decompression of the operative levels, this abnormal activity began to improve and shortly thereafter the neurophysiologic recordings reached normal and symmetrical levels where they were stable and maintained for the remainder of the procedure. Otherwise, there were no significant or persistent intraoperative neurophysiological monitoring abnormalities or changes reported. Per preoperative primary care and medical subspecialty clearance evaluation recommendations, stress dose steroids were administered shortly after anesthesia induction and will be tapered over the initial postoperative period as directed by the medicine and endocrinology consultation services. The patients baseline preoperative hyponatremia was corrected intraoperatively using standard IV fluid administration. This degree of fairly rapid correction was not associated with any monitoring changes or other abnormalities but was felt to be sufficiently significant in this patient to warrant close monitoring and serial laboratory evaluation postoperatively. Per anesthesia recommendations, arrangements will be made for this monitoring through the medical and endocrinology consultation services. See the intraoperative anesthesia and electrophysiological monitoring records for details. Final Postoperative Condition: The patient was extubated and stable to the recovery room with well-fitted [place] cervical collar in place and with no new deficit or change compared to stable baseline preoperative neurological and musculoskeletal assessment based on limited evaluation during initial recovery from anesthesia. The patient demonstrated grossly normal spontaneous motion and later was able to demonstrate normal motion and function to command in all extremities once fully awake upon early recovery from anesthesia. Although no objective change could be detected, with good strength documented both pre- and post-operatively, the patient reported subjective improvement in her bilateral hand subjective sensation, strength and dexterity compared to her preoperative status during initial evaluation in the recovery room. There was no pain with active and passive distal extremity motion and there were no postoperative symptoms suggestive of the development of a deep soft tissue swelling or vascular condition. Operative Indication: Nery Cuello is a 61 year old medically fragile but stable right-handed white female with numerous medical conditions described below who presents for surgical stabilization of C3-C4 and C4-C5 cervical spondylolisthesis associated with significant degenerative disease and moderate stenosis causing severe neck pain and bilateral diffuse upper extremity numbness and discoordination suggestive of dynamic myeloradiculopathy. Her cervical spine symptoms and deficits have progressively worsened despite optimized conservative management and thus she has very reasonably chosen to proceed with surgical decompression and stabilization. She also has a right foot exostosis which has become very painful. Dr. Up has been following this as an outpatient and has recommended that it be resected. Given his familiarity with Ms. Cuello, Dr. Up has kindly offered to assist with her cervical spine procedure and has coordinated to perform her foot procedure during the same anesthetic and surgical encounter. Refer to Dr. Up's operative report for details regarding the foot procedure. The patient's preoperative cervical radiologic workup (static and dynamic radiographs and cervical myelogram with post-myelogram CT scan) show the above noted static and dynamic spondylolisthesis, resting and even greater motion- related instability and severe bilateral (right greater than left) spondylotic foraminal stenosis. Central canal stenosis is mild but may be underestimated on supine post-myelogram CT scan. She cannot have an MRI because of an implanted suboccipital spinal stimulator. Her preoperative laboratory studies were unremarkable compared to her chronic baseline electrolyte abnormalities, particularly hyponatremia, which is followed closely by her primary care physician and houseperson. The patient has sufficiently severe and progressively worsening clinical findings (symptoms including subjective neurological sensory, motor and coordination deficits with subtle physical examination findings consistent with her subjective deficits and functional limitations) related to this condition, has failed a comprehensive conservative management program despite excellent compliance to her maximal capacity and tolerance, has close correlation between clinical presentation and preoperative studies, is medically optimized for surgical intervention, understands and accepts the limitations, uncertainties and risk of surgery, appears to have appropriate goals for surgical outcome, and is more likely to achieve those goals with the planned surgical procedure than with other options for treatment thus making her a reasonable candidate for surgical intervention. Her past medical history is significant for hyperlipidemia, hyponatremia, hypothyroidism, osteoporosis, gastroesophageal reflux, chronic pain (treated with intermediate to high dose chronic narcotic medication and implanted suboccipital spinal stimulator by Dr. Wu at [facility]) and bipolar disorder. She also has a history of MRSA colonization and has followed standard preoperative swab treatment protocol for positive nares cultures documented during surgical workup. Her surgeries include total abdominal hysterectomy, knee arthroscopy, extracorporeal shock wave lithotripsy (ESWL) for nephrolithiasis and implantation of the above mentioned stimulator to address chronic suboccipital pain. She reports no history of anesthetic or surgical complications associated with her prior procedures to suggest an elevated probability of risk for the currently planned procedure. Her numerous medications are listed in detail in her admission history and physical report. Refer to that document for specific medications and doses. She reports allergies but no anaphylaxis or anaphylactoid reactions to aspirin, latex, penicillin, streptomycin, sulfa and tetanus. She is a recent and long-time smoker who quit in preparation for surgery and is trying to quit permanently starting at this time. She denies significant alcohol intake or other social risk factors. She lives alone and has stairs at home which may make it difficult for her to safely care for herself particularly given her mild to moderate balance difficulty, fall risk, postoperative ambulatory difficulty due to her foot procedure and postoperative need for consistent collar use which will also limit visual cues for safe and optimized mobilization. The above medical, surgical, medication, allergy and other clinical information was reviewed throughout the hospital admission and preoperative confirmation process but did not alter surgical recommendations, treatment plans or perioperative management in this case. Treatment options were discussed in detail directly with the patient. After careful and appropriate consideration she elected to proceed with the planned operative procedure of C3-C4 and C4-C5 anterior cervical discectomy, osteophytectomy, foraminotomy, neural element decompression, reduction of spondylolisthesis and instrumented fusion using interbody implant and anterior transvertebral plate-screw instrumentation stabilization. She also consented to any additional indicated procedure based on intraoperative findings including formal spondylolisthesis and kyphotic deformity reduction if positional reduction was insufficient for optimal correction. Arrangements for hospital admission, surgery and perioperative care were made through Dr. Grier's office. In addition to the general risks of all surgical procedures (bleeding, infection, anesthesia and other general risks), specific risks of the planned procedure were reviewed with the patient including but not limited to tissue injury or exacerbation of prior injury (spinal cord, nerve root, peripheral nerve, meningeal, blood vessel, bone, disk, joint, muscle, tendon, ligament, esophagus, trachea or other tissue injury), fracture of spinal elements, failure of spinal implants (fracture, loosening, or subsidence), failure of fusion, worsening of spinal alignment, heterotopic or ectopic bone or scar formation, new or persistent-exacerbated symptoms (pain, dysesthesias, paresthesias, headaches, dizziness), development of new or worsening of preexisting medical conditions or complications (arthritis, blood clots, cardiac events, stroke, acute organ failure of any organ, other medical conditions potentially worsened by trauma, anesthesia or immobility), inability to complete the procedure as planned, and need for reoperation at the current or a future related site ( including possible surgeries at other already degenerative levels and/or posterior stabilization at the same or adjacent levels). Potential for partial or complete, global or regional loss of motor, sensory, coordination, swallowing , voice, facial motion, facial expression, ocular, pupillary, breathing, ambulatory, balance, bladder, bowel or sexual function was reviewed. Remaining potential complications were reviewed in inclusive risk categories ranging through all severity levels from temporary changes to catastrophic outcomes such as complete paralysis, organ failure, disfigurement and . The patient understood and accepted that her risk was significantly above average even for this already complex procedure due to her duration, severity and steady progression of pre-operative symptoms, significant and progressive preoperative subjective bilateral upper extremity and hand sensory deficit, dyscoordination and functional deficits, duration and extent of work and home activity limitations requiring home care assistance, multiple levels of degenerative disease and spinal neural compression on MRI, significant multilevel instability, degenerative involvement of adjacent motion segments not addressed by the currently planned procedure, spinal deformity, smoking history, history of MRSA colonization, history of intermediate to high dose chronic narcotic analgesic use and history of multiple systemic medical conditions ( including metabolic deficiencies and osteoporosis). The patient is an active smoker and the potentially severe implications of continued smoking on surgical recovery, fusion healing, functional recovery and general health were reviewed in detail. Signed operative consent was obtained directly from the patient with good understanding of all reasonable alternatives, indications, goals, expectations, limitations, risks and benefits of the planned procedure. The patient consented to all phases of the procedure being performed by Dr. Grier with the assistance of all designated hospital and outpatient practice team members. The patient was cleared preoperatively as optimized for surgery by her primary care physician (Jaz Espinosa M.D.), all requested consulting medical subspecialists and primary surgeon office evaluation prior to admission. Preoperative arrangements were made to follow all clearance evaluation recommendations. In the preoperative evaluation area, the patient confirmed her oral intake status as NPO since midnight prior to surgery. Operative/Procedure Note Note: Preoperative Holding Area Assessment/Preparation: The patient was evaluated in the preoperative holding area prior to surgery and no clinical changes or contraindications to surgical intervention were documented compared to the preoperative office and clearance evaluations. Her mild but reproducible bilateral hand coordination and functional deficits are unchanged from clearance examinations. As in the office, the patient was otherwise grossly neurovascularly intact in both upper extremities to standard testing. Active, patient controlled Lhermitte's and Spurling's maneuvers were negative and there was no suggestion of acute, positional neural element compression that might be associated with increased neurological intraoperative risk based on preoperative assessment. She did however have severe and spasmodic axial and proximal radiating upper shoulder pain with worsened subjective bilateral hand dyscoordination at the extremes of all neck motions, particularly with extension. Her reflexes were diffusely brisk but there were no hyperactive or abnormal reflex responses to standard testing. The surgical plan and site were confirmed with the patient and preoperative paperwork was finalized. The region of the intended surgical site was cleansed, prepped and marked per protocol. The primary surgeon, anesthesia care team members, and operating room staff confirmed the patient identity, surgical procedure, and operative site as well as other clinical details with the patient in an initial documented preoperative confirmation (awake time out) prior to the administration of sedation or anesthesia. Surgical Procedure: The procedure was performed by Dr. Grier who was present and served as the primary surgeon for all critical intraoperative and perioperative decisions and interventions. Jamie Up M.D. assisted throughout each critical phase of the procedure. The assistance of a specialty trained orthopaedic surgeon was critical for safe completion of all phases of the procedure, particularly for soft tissue retraction and maintenance of clear visualization in the operative field given the complexity of the case. Set-Up/Positioning/Exposure - The patient was brought to the operating room in stable condition and underwent uncomplicated induction of general anesthesia, intubation, and placement of all appropriate monitors, lines and catheters without difficulty. Administration of 1 gram of IV Vancomycin was given for surgical prophylaxis (due to the patient's history of MRSA colonization) and was completed at least 30 minutes prior to making an incision. Stress dose steroids were administered per preoperative medical clearance evaluation recommendations. The patient was positioned supine on the operating table in standard fashion for an anterior cervical discectomy and instrumented fusion. Care was taken to protect and stabilize the spine during transfer, avoid positions of nerve stretch, pad all pressure points, and support the head and neck initially in a neutral position. Once positioned and prior to final cervical spine procedure set-up, Dr. Up completed the right foot procedure which is described completely in his operative report. Following completion of this procedure, the patient's foot was dressed, wrapped, padded and protected throughout the cervical procedure and the remainder of the surgical encounter. Final positioning and preparation for cervical spine surgery was then performed using a rolled sheet under the scapulae and a gel donut head rest under the occiput with the height adjusted using towels so as to optimize alignment in a slightly extended neck position. Harness cervical traction apparatus was applied in standard fashion with 10 pounds of stabilizing weight applied taking care to avoid any force transmission to the endotracheal tube. Electrophysiological monitoring electrodes were applied per standard monitoring protocol. Wrist cuffs were placed with sufficient circumferential approximation so that traction could be applied during the case if necessary for radiologic visualization, but loose enough that there was no pressure to the wrists when traction was not being applied. Care was taken to insure that all IV sites and monitoring leads were protected in the unlikely event that wrist traction was required during the procedure. The arms were well padded and tucked at the patient's sides again taking care to protect all IV sites and monitoring leads. Baseline preoperative electrophysiological monitoring readings were obtained and no gross abnormalities were noted, however increased spontaneous left shoulder muscular EMG activity was noted consistent with the patient's preoperative proximal radicular symptoms and radiologic findings of severe foraminal stenosis. The primary surgeon, anesthesia care team, and operating room staff again documented the patient identity, surgical procedure, and operative site in a final confirmation (final time out) prior to beginning the procedure. A cross-table lateral fluoroscopic image was obtained with a skin marker in place to determine the optimal level for incision, to document optimized intraoperative cervical alignment (including at least partial reduction of preoperatively documented C3-C4 and C4-C5 anterolisthesis), and to confirm acceptable radiologic visualization of the intended operative levels with sufficient detail down to the cervicothoracic junction level throughout the procedure. The unstable dual level "stair-step" spondylolisthesis, which had not reduced on preoperative extension radiographs, still did not adequately reduce in the extended supine position even under anesthesia confirming the presence of a fixed and unstable translational and angular kyphotic deformity requiring formal and distinct corrective procedure in order to optimally address the patient's neural compression and hopefully minimize axial symptoms, functional deficits and future risk of same or adjacent segment problems requiring further intervention. Loupe magnification was used throughout the appropriate portions of the procedure. After sterile prep and drape performed using standard technique, a right anterior cervical incision was mapped, infiltrated with local anesthetic, and made in a transverse curvilinear fashion within a major neck skin crease overlying the intended operative levels using a #15 scalpel blade. Hemostasis was achieved using Bovie and Bipolar electrocautery beginning with the incision and continuing throughout the procedure with settings appropriate to each progressive level. The dissection was carried through the subcutaneous layer in line with the incision, both the upper and lower skin flaps were mobilized so as to minimize traction injury, and the platysma was then bluntly dissected in line with its fibers and divided longitudinally to expose the underlying strap muscles. Soft tissue dissection continued down to the prevertebral space in the plane between the esophagus and trachea medially and the palpated pulse of the vertebral artery laterally taking care to gently manually retract and protect these structures throughout the dissection using hand-held Cloward retractors. With the anterior longitudinal ligament identified at the disk space level, two spinal needles were bent in a closely spaced double right-angle configuration to prevent excessive penetration, placed and confirmed to be at the intended operative levels (C3-C4 and C4-C5) on cross-table lateral fluoroscopic image. No additional upper extremity traction was required for optimal fluoroscopic visualization down to the cervicothoracic junction and the entire cervical region was optimally visualized throughout the procedure without the need for additional cranial or extremity traction. Once the appropriate levels were fluoroscopically confirmed, dissection was optimized to fully expose both intended disc space levels as well as the adjacent medial margins of the longus colli muscles which were elevated using Bipolar and Bovie electrocautery to optimize stable placement of the transverse serrated-edge (toothed) Trim-line retractor blades and self-retaining retractor arm. Use of this submuscular dissection technique ensured full horizontal exposure while minimizing pressure on the more superficial medial and lateral structures so as to minimize risk of potential adverse effects associated with retraction. The longitudinal smooth- edge Trim-line retractor blades and arm were then placed using standard technique and configuration so as to optimize exposure while taking care to protect surrounding structures. Discectomy/Neural Decompression - After confirming optimized exposure and visualization, a rectangular anterior annulectomy was performed first at C4-C5 using a #11 scalpel blade. The disc space was gently distracted initially using the long-armed intervertebral pharmacology associate. Although this was effective in initially exposing the disk space for decompression, by the time posterior osteophyte resection was beginning it became evident that the patient's inferior C4 endplate and vertebral body were so osteoporotic as to be incompetent resulting in a small anterior inferior endplate fracture and lower vertebral body defect even from very gentle and optimally applied distraction force only as required to perform the decompression. The intervertebral pharmacology associate was removed and the Sanford pins and distractor arms were placed with good distraction and visualization. There was no further vertebral body osteoporotic fracture during decompression of the C4- C5 level using this technique. A majority of the discectomy was performed with curved curettes and pituitary rongeurs down to the level of the uncovertebral joints. Degenerative disk and fibrotic material was found extending within a disk-osteophyte complex into the central, lateral recess and foraminal zones and even extending beyond the spondylotic projections thus additionally contributing to the ventral spinal canal and foraminal encroachment and neural compression. This degenerative material was noted to elevate and cause some buckling of the partially incompetent degenerative posterior longitudinal ligament particularly in the lateral regions posterior to the uncovertebral joint complexes however no specific projection or herniation through the ligament was appreciated directly contacting the neural elements. Most of the direct neural compression was spondylotic although the additional fibrotic soft tissue component certainly contributed. This was consistent with the patients preoperative clinical and myelogram findings. Disk fragments were removed with pituitary rongeurs. All resected disc material was sent to pathology for analysis per hospital protocol. Using curved curettes and Kerrison rongeurs, the posterior longitudinal ligament and all impinging osteophytes were resected. Bilateral foraminotomies were then performed using Kerrison rongeurs to fully decompress all exiting neural elements at the operative level. No significant irritability, hyperactive neural firing, muscle contraction or electrophysiological monitoring changes were noted on initial posterior disk fragment and osteophyte removal or during foraminotomy. Hemostasis of osseous and epidural bleeding was achieved using Thrombin soaked Gelfoam and paddies gently applied and removed by irrigation with all bleeding controlled. Final complete central and foraminal decompression was confirmed by gentle passage of a blunt nerve hook behind both the upper and lower vertebral bodies and out each foramen without resistance. Attention was then turned to the C3-C4 level which was addressed using identical technique to that described above including exposure, annulectomy, disc and herniated fragment excision, osteophytectomy and bilateral foraminotomies. Given the severely osteoporotic status of the patient's vertebral bodies with propensity for incompetent endplate fracture even with gentle intervertebral distraction as demonstrated at the C4-C5 level, the Sanford retractor was applied and used for initial disk space distraction at the C3-C4 level. This provided adequate exposure for a majority of the decompression and preparation of endplates but at the end, the C4 Sanford pin loosened and the final foraminotomy had to be performed using the intervertebral pharmacology associate. Although this was successful in distracting the disk space sufficiently to complete the decompression optimally, once again even gentle focused distraction using this instrument resulted in incompetent anterior inferior C3 endplate fracture and impaction into the vertebral body resulting in the formation of a small cavity requiring subsequent grafting. Once this endplate fracture was noted, the intervertebral pharmacology associate was removed and fortunately the remainder of the endplate preparation could be optimally completed without disk space distraction. As at the C4-C5 level, a similar degree of central, bilateral paracentral and foraminal degenerative subligamentous disk fragments and fibrotic material were identified causing tenting of the posterior longitudinal ligament. This was removed, followed by resection of uncovertebral osteophytes noted bilaterally at this level. No neural irritability or muscular hyperactivity was noted during decompression at this level with no monitoring changes reported. Full decompression was again documented by gentle palpation before proceeding with the fusion portion of the procedure. Normalization of preoperatively noted increased spontaneous baseline left shoulder EMG activity was noted shortly following completion of decompression at both cervical levels with no adverse changes seen at any point during the decompression or at any time during the case. Following confirmation of complete decompression at both levels attention was turned to the fusion portion of the procedure. Arthrodesis/Instrumentation - Arthrodesis was first performed at the C4-C5 level. A Leksell rongeur was used to resect the anterior osteophytes at the margins of the disc space until the anterior surface across the disc space was flush and optimized for placement of an anterior transvertebral plate. Separate osteophytectomy was required extending down to the inferior aspect of the C5 vertebral body adjacent to the C5-C6 disk space and distinct from the normal anterior vertebral surface preparation for this type of procedure. This separate osteophytectomy is described below during the plate fixation portion of the procedure. The [employer] drill with a 5 mm cutting ronda was used to remove anterior osteophytes and cartilaginous endplate as well as to partially decorticate the osseous endplates in a tapered fashion from slightly more narrow anteriorly to slightly wider posteriorly leaving both anterior and posterior vertebral wall projections of 1- 2 mm extending into the interspace so as to prevent graft migration. This contouring resulted in slightly more anterior than posterior distraction and disc space height restorationism with partial restorationism of lordosis when the lordotic surface structural allograft was later impacted into the tapered interspace. This also ensured optimal interference fit of the intervertebral graft and lateral ligamentous tension of the interspace for optimal fusion. Care was taken to preserve as much competent endplate as possible given the weakened osteoporotic nature of the patient's vertebral bodies noted on disk space distraction above. Just prior to interbody allograft placement, the central portion of each endplate was breached to bleeding cancellous bone with the drill and curved curette at the interface with the central cancellous portion of the composite allograft to promote optimal ingrowth. The peripheral zones of both osseous endplates surrounding this central breach were preserved at the perimeter for optimal support of the cortical portion of the composite allograft so as to minimize the risk of subsidence. Hemostasis was confirmed and the interspace and surgical site were thoroughly irrigated prior to placement of the structural composite allograft. All stabilizing and traction weights were removed from the halter harness. With no Halter traction or Sanford interspace distraction applied to the operative level, the C4-C5 interspace was templated with optimal fit and soft tissue tension documented using a standard trial of 7 mm height, 11 mm depth and 14 mm width. The 7 mm x 11 mm x 14 mm [employer] Lordotic ASR Machined Cortical-Cancellous Composite Allograft implant was reconstituted in saline and contoured at its front corners as needed for optimal impaction. The composite allograft implant was then gently impacted into the interspace until it was recessed behind the vertebral wall ridge which had been fashioned to prevent migration. During implantation the spondylolisthesis had to be manually maintained in the reduced position so as to optimally realign the spinal segment and reduce the translational and angular kyphotic deformity. Without this separate and distinct deformity reduction procedure the patient's surgical stabilization and correction could not have been accomplished and the patient's condition could not have been optimally (or perhaps even adequately) addressed. Once the graft implant was in optimal position, excellent interference fit was documented with no motion seen when gentle anteriorly directed pressure was applied to the posterior aspect of the graft on each side using a nerve hook. Identical interbody arthrodesis procedure was then performed at C3-C4 using similar technique and implant size to that described above for C4-C5 and with identical optimized final intraoperative assessment and results. After endplate preparation and based on trial sizing, an identical type and size of interbody graft (7 mm x 11 mm x 14 mm [employer] Lordotic ASR Machined Cortical-Cancellous Composite Allograft) as that described for C4-C5 was reconstituted, contoured and impacted into the C3-C4 interspace with good interference fit, reduction of spondylolisthesis and restorationism of disk space height, foraminal height and stability. As noted above for the C4-C5 level, the spondylolisthesis had to be manually maintained in the reduced position during graft implantation so as to optimally realign the spinal segment and reduce the translational and angular kyphotic deformity. This separate and distinct deformity reduction procedure was essential in order to achieve surgical goals and optimize surgical outcome. Once the interbody instrumentation was completed optimally at both levels all traction was removed and hemostasis was achieved using small pieces of Thrombin soaked Gelfoam and/or FloSeal placed adjacent to the interbody implants were necessary. Bone wax was applied to the Sanford pin sites and vertebral body surface for any persistent osseous hemostasis. TASCETanse Medium-C 9 (8mm x 6mm x 9mm) was then cut in half and impacted into the osteoporotic vertebral body defects adjacent to the interspace allografts with good interference fit and cavitary fill of the osteoporotic fracture defects as well as good support of the small areas of inferior endplate defects at both the C3 and C4 levels so as to minimize the risk of subsidence in these regions of endplate incompetence. This additional and separately coded placement of morselized, non-structural allograft-substitute osteopromotive material was necessary for treatment of the intraoperative osteoporotic vertebral body fractures distinct from the grafting of the interspace and essential for optimal treatment of these intrinsic vertebral body lesions which were not separately coded given that no open resection was required. Instead, the primary treatment for these osteoporotic fractures will be considered closed management and will be performed as an additional postoperative procedural service. The grafting of the vertebral body defects was in turn distinct from the resection of large inferior C5 endplate osteophyte adjacent to a third and otherwise unoperated vertebral motion segment which blocked plate placement and required distinct and separately coded resection procedure (see detailed description below). Attention was then turned to the anterior vertebral body wall trans-segmental plate-screw construct fixation. Final contouring of the anterior vertebral body georeg was performed using the [employer] drill and cutting ronda until an appropriately sized plate could rest flush on all anterior vertebral body surfaces to provide optimal fixation. In order to allow optimal placement and fixation of the lower end of the plate to the C5 cortex a very large inferior C5 endplate anteriorly projecting osteophyte adjacent to the C5-C6 motion segment and extending more than group home up the vertebral body wall had to be resected distinct from and in addition to the normal resection of superior endplate osteophyte generally required for this type of procedure. Due to it's size, the additional inferior osteophyte resection was actually considerably more complex and difficult than the typically required resection of superior projecting osteophyte which was much smaller. Also, this supplemental and distinct resection required significant additional skill and operative time so as to protect the adjacent C5-C6 unfused level while also maintaining sufficient cortical wall buttress below the plate to minimize the risk of fracture in this severely osteoporotic patient. A 40 mm [employer] [place] Vision Elite 6-hole plate was chosen such that the margins of the upper and lower screw holes were positioned just beyond the most superior and inferior endplates of the operative levels respectively with each screw hole entirely over vertebral body cortical wall at each level so as to optimize screw purchase and plate fixation. This plate size and position resulted in optimal fixation while minimizing any risk of plate extension too close to an adjacent unfused disk. The plate was contoured into optimal lordosis prior to implantation. Ultimately, the osseous endplate and plate implant contouring described above contributed to significant near-anatomic restorationism of cervical lordosis through the fused segment from a kyphotic and anteriorly translated unstable preoperative (and even initial intraoperative) alignment. This reversal and correction of significant deformity with associated potential for optimized outcome could not have been achieved without these specialized techniques, separate corrective interventions and distinct procedural services. Screws were placed using standard technique with trajectories which were divergent in the sagittal plane and convergent in the axial plane for optimal purchase and load sharing with the interbody graft. Fixed angle 13 mm x 4.5 mm screws were placed at C5 bilaterally and variable angle 15 mm x 4.0 mm screws at C3 and C4 bilaterally to promote load sharing, force transmission and compression across the anterior column and interbody grafts. The larger diameter screws at C5 were initially placed (not placed secondarily as rescue screws) so as to optimize fixation given this patient's severely osteoporotic bone. The screws at C3 and C4 were placed with a slightly more cephalad angle so as to optimize purchase and therefore a longer screw length could be accommodated without risk of posterior breach. The interbody composite allografts as well as the anterior plate and screws were confirmed to be in optimal position on final intraoperative cross-table lateral fluoroscopic images. The final plate-screw locking mechanism was set over the screw heads at each level with good coverage so as to minimize the risk of screw loosening or protrusion. Continuous electrophysiological monitoring throughout the procedure showed no prolonged or persistent adverse changes at any point during the decompression, instrumentation, or at any other time during the case. In fact, there was noticeable improvement and near-complete resolution of the abnormal spontaneous left shoulder activity and irritability after decompression compared to initial baseline readings. Deformity Correction - In this case, given the gross kyphotic deformity associated with both translational and angular multi-level spondylolisthetic instability which only partially corrected with standard reduction techniques, a distinct correction of deformity procedure was felt to be necessary in order to achieve full spinal cord decompression, optimal restorationism of function, and potential protection against adjacent segment degeneration. Only slight correction of alignment and reduction of multilevel "stair-step" spondylolisthesis was achieved by initial patient positioning despite optimal head and neck positioning in slight extension. Therefore, optimal correction required a combination of separate techniques including specialized contouring of the endplates, use of lordotic intervertebral implant, contouring of the anterior transvertebral plate, and use of fixed angle screws at the bottom of the construct with variable angle screws above. In addition, manual reduction of the spondylolisthetic translational deformity at each level was necessary which is not typically required for this type of procedure and is not included in a standard cervical discectomy, decompression and fusion procedure. Application of the above described techniques involved specialized surgical skill and experience as well as additional operative time well above and beyond the typical degree involved for a similar procedure without requirement for deformity correction. These specialized techniques were successful in reversing kyphotic deformity and restoring near-anatomic lordotic alignment from C3 to C5 for final arthrodesis position based on intraoperative lateral fluoroscopic images. This correction would not have been possible without this distinct and additionally coded procedural service. Closure/Recovery - The surgical site was thoroughly irrigated and hemostasis was carefully achieved prior to closure. FloSeal (5 cc) was placed in the prevertebral space and lateral margins of the operated disc space around the grafts where it was felt to be helpful for osseous and soft tissue hemostasis. The surgical site was found to be dry at the end of the procedure and consequently no drain was needed. Initial counts were correct prior to closure. The deep soft tissue layer was loosely reapproximated in a [id number] closure with #3-0 undyed Vicryl interrupted, simple suture technique. The platysma [id number] closure was also performed with #3-0 undyed Vicryl inverted, interrupted, simple suture technique. The superficial subcutaneous layer was closed with #3-0 undyed Vicryl inverted, interrupted, simple sutures. The skin was closed using #4-0 undyed running subcuticular Monocryl suture followed by Steri-Strips applied with Mastisol. A standard, sterile small island dressing was placed with good coverage. All counts were correct prior to removing the drapes. The Halter harness was removed and a buttressed hard foam [place] cervical collar was placed and fitted optimally prior to awakening the patient. The patient was extubated on the operating table without difficulty and then transferred to the hospital bed in the supine position taking care to stabilize the head and neck during transfer. Recovery Room Assessment: The patient was taken to the recovery room in stable condition where gross neurological examination showed no deficits on initial recovery from anesthesia. In fact, there was the suggestion of some subtle initial postoperative subjective improvement in both her bilateral distal upper extremity sensory and dexterity function compared to preoperative assessment by patient report. The patient will follow the usual postoperative protocol for multilevel anterior cervical discectomy, osteophytectomy and foraminal neural element decompression with anterior interbody composite allograft implant fusion stabilized by anterior transvertebral instrumentation. This will include early hospital postoperative extremity and ambulatory mobilization followed by outpatient rehabilitation program taking care to minimize head and neck motion initially so as to optimize fusion healing. She may require more comprehensive monitoring and prolonged hospitalization compared to other patient's following similar surgical intervention because of her significant medical comorbidities requiring specialized postoperative care per medical clearance evaluation recommendations. Her need for any such increased postoperative care will be determined by medicine and endocrinology consultation services. These postoperative consultations have been requested urgently for metabolic monitoring ( particularly regarding the patient's hyponatremia) and to prescribe stress dose steroid taper as well as for general medical assessment and monitoring. Given the lack of constant home support, the patient's need for intermediate to high dose narcotic pain medication coverage, her associated complex medical history including hyponatremia requiring laboratory monitoring and the additional functional limitations imposed by her concomitant foot procedure and need for continuous cervical collar use (limiting downward gaze and visual cues for safe ambulation) she would be an excellent candidate for transfer to a short-term inpatient supervised rehabilitation program followed by daily home nursing and physical therapy services after discharge from inpatient rehab. Final determination of optimal post-hospitalization services will be determined following inpatient hospital physical therapy and discharge planning assessments on postoperative day #1. Given the patient's preoperative condition involving significant spinal instability and deformity requiring distinct corrective procedure, the multilevel nature of her fusion surgery, the use of composite allograft interbody implant as well as patient history of osteoporosis, smoking and use of potentially bone depleting medications, a spinal fusion osteogenesis stimulator is indicated and will be ordered, applied and followed through the office. Findings: 1) Moderately compressive disk herniation fragments, associated with buckling of and unidirectional neural encroachment through the posterior longitudinal ligament, were identified and resected at both the C3-C4 and the C4 -C5 levels. 2) Compressive osteophytes, especially at the bilateral uncovertebral joints , were identified and completely resected at both the C3-C4 and C4-C5 levels. 3) Full central canal and bilateral foraminal decompression was documented by intraoperative palpation at each operative level. Foraminal stenosis associated with uncovertebral osteophyte projections noted on preoperative studies and confirmed on initial foraminal assessment after discectomy was fully patent after osteophytectomy and foraminotomy. 4) Optimal interference fit of the interbody grafts was achieved and documented by intraoperative palpation. Anterior transvertebral plate-screw construct fixation was adequate and optimal for this patient although somewhat limited compared to patient age and clinical cohort due to her severe osteoporosis. This relative limitation of fixation warrants consistent rigid cervical collar external immobilization and electromagnetic field stimulation at least until early arthrodesis is documented by postoperative radiographic office follow-up assessment. 5) The patient's dual level "stair-step" spondylolisthesis was only partially reducible by passive means using standard and optimized supine positioning with the neck in slight extension. Optimal reduction was ultimately achieved by controlled manual reduction techniques during implant placement which resulted in optimized stable reduction upon final instrumentation fixation. Near anatomic restorationism of lordotic segmental alignment was confirmed by intraoperative radiologic assessment compared to the fixed, unstable kyphotic angular and translational deformity noted preoperatively. This additional reduction and alignment correction was necessary for optimization of neural element decompression, spinal mechanics and clinical outcome which could not have been achieved without these separate and distinct reduction and correction procedural services. Discharge Disposition: PACU Additional Comments: Standard postoperative protocol for multilevel anterior cervical discectomy, reduction of multilevel spondylolisthesis, correction of kyphotic deformity and instrumented fusion will include: Continuation of perioperative antibiotics for a total of 24 hours (2 total doses of IV Vancomycin). Continuation of IV/Oral stress dose corticosteroid taper per anesthesia and medical consultation service recommendations. Continuation of [place] catheter per anesthesia, general medicine and subspecialty consult service recommendations until those services determine that there is no further need for urine volume or electrolyte concentration monitoring. The patient will use a rigid [place] collar (dispensed from the hospital) or a rigid [place] cervical collar (dispensed from the office but not brought with her to the hospital for admission as instructed per preoperative protocol) most of the time when she is out of bed but may remove it to take breaks and for hygiene. Even when the collar is in place, but particularly when the collar is off, the patient is cautioned to minimize neck motion. This level of collar use and motion limitation will continue until her first postoperative visit at which time future need for the collar will be assessed. It is not necessary for her to use the collar constantly nor when she is sleeping although she may use it at night for comfort if she so chooses. The patient will be instructed on and follow standard protocols regarding anterior cervical surgical site care, showering and post-shower daily dressing changes following shower starting on postoperative day #2. Physical therapy will be consulted for evaluation on the afternoon of surgery or the first postoperative morning for education regarding collar application, removal and exchange (particularly between regular and shower collars), extremity range of motion and strengthening exercises as well as mobilization from and to bed, chair and bathroom in preparation for transfer to inpatient rehabilitation facility. She may be weight-bearing as tolerated on her right foot using a walker and hard-sole "fracture shoe". The patient is encouraged to minimize neck motion, lifting, carrying, pushing, pulling and overhead reaching particularly during the first 6 weeks postoperatively. Advance normal diet as tolerated and without any required restrictions. Balanced diet is recommended to support optimal surgical site and osseous healing. If swallowing difficulty develops then reduce diet to mechanical soft or liquid diet and contact surgeon. The patient is at low perioperative thromboembolic risk and does not require any pharmacologic prophylactic treatment in this regard as long as she mobilizes early and frequently with lower extremity motion exercises and walking. Sequential compression devices will be used throughout the patient's hospitalization. Contact Dr. Grier in the unlikely event that the patient is unable to mobilize adequately (at least to the hallway) with physical therapy and/or nursing by postoperative day #2 at which point pharmacological prophylaxis may be considered. Assuming standard hospital course: Discharge planning for inpatient rehabilitation program transfer can begin on postoperative day #1. The patient will be discharged with the following orthopaedic postoperative medication orders: Narcotic Pain Medication: Baseline Pain Management Narcotic Medications: Patient will continue baseline home narcotic regimen as prescribed and monitored by pain management. Surgery-Related Breakthrough Pain Medications: Dilaudid 2 mg PO q4-6 hours prn severe or breakthrough pain Breakthrough pain medication only to be used if: Symptoms are not adequately controlled by patient's baseline pain management regimen Benzodiazepine Muscle Relaxant Medication: Diazepam 5 mg PO q6-8 hours prn spasm All other medications will be prescribed and monitored by the patient's primary care, consulting medical specialty and pain management providers. All final medication orders and monitoring will be determined at the inpatient rehabilitation facility by the supervising physician based on their clinical assessments. The operating orthopaedic spine surgeon, the patient's primary care physician, the other consulting medical subspecialists or the patient's shading painter should be contacted at any time for any clinical problems or concerns specific to the areas of expertise of the above physicians. The patient was instructed not to drive for at least the first 2 weeks postoperatively and given recommendations regarding short distance driving thereafter only if she no longer required a collar, had good pain control without the need for narcotic or other sedating medication, and met all DMV criteria for safely operating her specific motor vehicle. Initial postoperative follow-up evaluation was scheduled for the patient prior to surgery and should be approximately 10-14 days postoperatively at which time her incision will be checked. Given her severe osteoporosis, it is reasonable to check anterior-posterior and lateral radiographs at this early timepoint as well. Given her complex medical history, it is strongly recommended that this initial office follow-up be arranged even if the patient is still at an inpatient rehabilitation program at the time of scheduled appointment and transportation needs to be arranged by that facility. Outpatient physical therapy as well as other plans and arrangements will be made at that time along with a schedule for return to normal activity. Anterior-posterior and lateral cervical spine radiographs will also be performed (without the collar in place) at the 6 week follow-up evaluation unless indicated earlier. The patient already has Dr. Orozco office contact information and will again be given the phone number along with home care instructions prior to discharge. She is encouraged to call for any questions or concerns and particularly for any significant or prolonged fever or incisional drainage, erythema or swelling as well as for any pronounced breathing, swallowing or vocalization changes.
[2017-01-26 23:09] VITALS: BP 122/70
[2017-01-27] VITALS (8 sets, daily range): BP systolic 100–124; BP diastolic 60–74
--- NOTE | 2017-01-27 01:04 | NUR ---
1535 PATIENT ARRIVED TO FLOOR. ALERT AND ORIENTED X 3. VITAL SIGNS STABLE. DENIES CHEST PAIN. + PULSES ON 2L VIA NASAL CANNULA. DUST BOX TENDER PUMP FOR PAIN. ANDERSON CARE GIVEN. NECK COLLAR AND R FOOT BOOT ARE ON. DSGS ARE C/D/I SKIN TEAR TO L ARM NOTED. BED LOW AND LOCKED. CALL LIGHT WITHIN REACH.
[2017-01-27 08:15] LABS: ABSOLUTE BASOPHIL COUNT 0.1 /CUMM (0.0-0.2); ABSOLUTE EOSINOPHIL COUNT 0 /CUMM (0.0-0.7); ABSOLUTE LYMPH COUNT 1.1 /CUMM (1.2-3.4); ABSOLUTE MONOCYTE COUNT 0.8 /CUMM (0.10-0.60); BASOPHIL % 0.8 % (0.0-2.0); EOSINOPHIL % 0 % (0-5); GRANULOCYTE % 77.7 % (42.2-75.2); HEMATOCRIT 29.8 % (37-47); MEAN CORPUSCULAR HGB 27.6 PG (27.0-31.0); MEAN CORPUSCULAR HGB CONC 32.4 G/DL (33.0-37.0); MEAN CORPUSCULAR VOLUME 85.3 FL (81.0-99.0); PLATELET COUNT 259 /CUMM (130-400); RBC DISTRIBUTION WIDTH 15.1 % (11.5-14.5); RED BLOOD CELL CT 3.49 /CUMM (4.20-5.40)
--- NOTE | 2017-01-27 08:19 | PN- Endocrinology ---
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 She has had history of chronic steroid uses due to asthma and her skin condition. In addition, patient is on pain medication chronically. On 12/17/2016, patient was put on Hydrocortisone replacement--- Hydrocortisone 15 mg at 8 am and 5 mg at 4 pm. She underwent cervical spinal surgery on 01/26/2017. Patient received stress dose of steroid-- Hydrocortisone 100 mg iv x 3 times. Her vital signs have been stable. Her sodium level remains 135. This morning's am lab is still pending. She is on NS at 75 ml/hour. Plan: 1. decrease Hydrocortisone to 50 mg iv every 12 hours today. 2. monitor VS and electrolytes. will follow. Subjective Subjective: She feels okay. Objective Last 24 Hrs of Vital Signs/I&O Vital Signs Date Time Temp Pulse Resp B/P Pulse O2 O2 Flow FiO2 Ox Delivery Rate 01/26 2309 98.6 74 20 122/70 99 01/26 2200 98.5 90 18 121/75 01/26 2000 98.5 90 18 121/75 98 Nasal 2.0L Cannula 01/26 1800 98.3 89 18 120/82 01/26 1800 98.3 89 18 120/82 99 Nasal 2.0L Cannula 01/26 1535 98.5 88 18 139/80 99 Nasal 2.0L Cannula 01/26 1535 99 Nasal 2.0L Cannula Intake & Output 01/27 1600 01/27 0800 01/27 0000 Intake Total 850 Output Total 3250 Balance -2400 Intake, Oral 850 Output, Urine 3250 Results Pertinent Lab/Con Results: Laboratory Tests 01/27 UNK UNK UNK Chemistry Sodium (137 - 145 mmol/L) 135 L 135 L 135 L Cancelled Potassium (3.5 - 5.1 mmol/L) 4.0 3.9 3.7 Cancelled Chloride (98 - 107 mmol/L) 103 103 104 Cancelled Carbon Dioxide (22 - 30 mmol/L) 25 27 25 Cancelled Anion Gap (5 - 16) 7 5 6 Cancelled BUN (7 - 17 mg/dL) 11 12 Creatinine (0.5 - 1.0 mg/dL) 0.5 0.5 Estimated GFR (>60 ml/min) > 60 > 60 BUN/Creatinine Ratio (7 - 25 %) 22.0 24.0 Hematology CBC w Diff Pending WBC Pending RBC Pending Hgb Pending Hct Pending MCV Pending MCH Pending RDW Pending Plt Count Pending MPV Pending PUBS MCHC Pending
--- NOTE | 2017-01-27 11:20 | PN- Orthopedic ---
Subjective Subjective: Patient reportning no acute overnight events. States that pain to foot has improved, but notes discomfort to surgical site on neck presently. Denies chest pain, shortness of breath and difficulty breathing. Has been OOB with PT, has been receiving respiratory therapy. Denies nausea and vomitting. Has been tolerating po but states that throat is sore. Objective Vital Signs and I&Os Vital Signs Date Time Temp Pulse Resp B/P Pulse O2 O2 Flow FiO2 Ox Delivery Rate 01/27 1108 Room Air 01/27 1107 96 Room Air 01/27 0952 97.9 76 18 122/74 / 0951 97.9 76 18 122/74 96 Room Air Room Air / 0946 76 122/74 / 0600 97.9 72 16 124/70 / 0600 97.9 72 16 124/70 98 Room Air 01/27 0400 71 18 100/61 / 0400 71 18 100/61 99 Nasal 2.0L Cannula 01/27 0200 73 18 122/70 / 0200 98.0 73 18 122/70 99 Nasal 2.0L Cannula 01/27 0000 98.6 74 20 122/70 03/ 0000 99 Nasal 2.0L Cannula 01/26 2309 98.6 74 20 122/70 99 / 2200 98.5 90 18 121/75 03/ 2000 98.5 90 18 121/75 98 Nasal 2.0L Cannula 01/26 1800 98.3 89 18 120/82 03/ 1800 98.3 89 18 120/82 99 Nasal 2.0L Cannula 01/26 1535 98.5 88 18 139/80 99 Nasal 2.0L Cannula 01/26 1535 99 Nasal 2.0L Cannula Intake & Output 01/27 1600 01/27 0800 01/27 0000 01/26 1600 01/26 0800 03 0000 Intake Total 1100 850 Output Total 1000 3250 Balance 100 -2400 Intake, IV 600 Intake, Oral 500 850 Output, Urine 1000 3250 Patient 99 lb 15.99 oz Weight Physical Exam: General: Alert and oriented x3, no acute distress Cardiac: RRR, s1s2 Pulm: CTA bilaterally, just complted respiratory therapy Abdomen: Non-tender, non-distended Extremities: Moves all extremities, distal sensation intact. Gross motor intact upper and lower extremities. Skin warm, thin, well perfused. DP pulses palpable bilaterally. Calves soft and non-tender bilaterally. Surgical site: right foot, dressing dry and intact. Neck: dressing dry and intact, hard collar in place. Assessment/Plan Assessment/Plan This is a 61 year old female, POD 1, s/p right calcaneal osteotomy and acdf. PMH c/w copd, adrenal insufficiency,hyponatremia,gerd,bipolar. -dPCA change frequency from q6min to q10 min -OOB with pt, wbat on r foot, upper extremity exercises starting tomorrow -Continue mechanical soft diet -Continue home meds -Continue TRC eval and treatment -Decrease solucortef to [address] Rosario's recommendation -Continue to follow electrolytes -Will d/w Dr. Grier Core Measures/Miscellaneous Venous Thromboembolism VTE Risk Factors: Age > 40, Surgery VTE Contraindications: Hypersensitivity Heparin VTE Diagnosis: No VTE Type: NONE VTE Confirmed by (Test): NONE Beta Tee Is Beta Tee a Home Med? No Antibiotics Is Patient on Antibiotics? Yes If Yes: prophylaxis
--- NOTE | 2017-01-27 13:50 | NUR ---
NURSING NOTE: PT AMUBLATED ON 3L NC W/02 SAT OF 85-86%. WHEN AMBULATED SHORT DISTANCE ON RA O2 SAT 82%. UPON REST ON 3L PT O2 SAT 92%. WILL CONTINUE TO MONITOR.
[2017-01-28 07:45] VITALS: BP 130/84
[2017-01-28 08:34] LABS: ABSOLUTE BASOPHIL COUNT 0.1 /CUMM (0.0-0.2); ABSOLUTE EOSINOPHIL COUNT 0 /CUMM (0.0-0.7); ABSOLUTE GRANULOCYTE CT 4.5 /CUMM (1.4-6.5); ABSOLUTE LYMPH COUNT 1.4 /CUMM (1.2-3.4); ABSOLUTE MONOCYTE COUNT 0.6 /CUMM (0.10-0.60); BASOPHIL % 1.1 % (0.0-2.0); EOSINOPHIL % 0.1 % (0-5); GRANULOCYTE % 69.1 % (42.2-75.2); HEMATOCRIT 26.5 % (37-47); MEAN CORPUSCULAR HGB 27.8 PG (27.0-31.0); MEAN CORPUSCULAR HGB CONC 33.2 G/DL (33.0-37.0); MEAN CORPUSCULAR VOLUME 83.9 FL (81.0-99.0); MEAN PLATELET VOLUME 7.2 FL (7.4-10.4); PLATELET COUNT 249 /CUMM (130-400); RBC DISTRIBUTION WIDTH 15.1 % (11.5-14.5); RED BLOOD CELL CT 3.16 /CUMM (4.20-5.40); WHITE BLOOD CELL COUNT 6.5 /CUMM (4.8-10.8)
--- NOTE | 2017-01-28 08:39 | PN- Orthopedic ---
Subjective Subjective: NAEO. patient without new c/o. Pain controlled with current pain regimen but states it is currently a 08/07. She received 103 doses from her RAND BUTTING MACHINE OPERATOR over past 24 hours. Tolerating diet without n/v. States she has no difficulty swallowing. Denies CP/SOB. Objective Vital Signs and I&Os Vital Signs Date Time Temp Pulse Resp B/P Pulse O2 O2 Flow FiO2 Ox Delivery Rate 01/28 0745 98.8 67 20 130/84 96 Room Air 01/27 2238 98.1 72 20 110/60 96 01/27 2005 99 Room Air 01/27 1437 97.7 68 20 118/70 100 Room Air 01/27 1231 Room Air Room Air 01/27 1214 Room Air Room Air 01/27 1108 Room Air 01/27 1107 96 Room Air 01/27 0952 97.9 76 18 122/74 01/27 0951 97.9 76 18 122/74 96 Room Air Room Air 01/27 0946 76 122/74 Intake & Output 01/28 1600 01/28 0800 01/28 0000 01/27 1600 01/27 0800 01/27 0000 Intake Total 481 047 1346 1100 850 Output Total 2500 6602 596 8109 3250 Balance -1620 -160 750 100 -2400 Intake, IV 400 150 600 600 Intake, Oral 480 840 800 500 850 Output, Urine 2500 4634 590 2053 3250 Physical Exam: General: NAD, comfortable, A&Ox3 Neuro: CN II-XII intact. 5/5 compliance mgr strength BUE. Neck: Dressing C/D/I. Neck brace in place. Chest: CTAB. RRR Abdomen: soft, nontender, nondistended. Ext: No calve swelling/TTP, neurovascularly intact bilateral lower extremities Current Medications: Current Medications Sig/Isacc Start time Last Medication Dose Route Stop Time Status Admin Acetaminophen/ 4 TAB BID 01/26 2200 AC 01/27 Hydrocodone Bitart PO 2113 Albuterol Sulfate 3 ML Q4P PRN 01/27 1100 AC 01/27 INH 1050 Albuterol Sulfate 2 PUF 4 TIMES/DAY PRN 01/26 1600 AC INH Atorvastatin Calcium 10 MG 1700 01/26 1700 AC 01/27 PO 1654 Budesonide/ 2 PUF BID 01/26 2200 AC 01/27 Formoterol Fumarate INH 2116 Clonazepam 0.5 MG AT BEDTIME 01/26 2200 AC 01/27 PO 02/02 2159 2121 Diazepam 5 MG Q8P PRN 01/26 1600 AC 01/28 PO 0819 Dicyclomine HCl 10 MG TID PRN 01/26 1600 AC PO Divalproex Sodium 250 MG BID 01/26 2200 AC 01/27 PO 2114 Docusate Sodium 100 MG BID 01/26 2200 AC 01/27 PO 2114 Gabapentin 300 MG TID 01/26 1600 AC 01/27 PO 2114 Hydrocortisone 10 MG 1600 01/28 1600 AC PO Hydrocortisone 20 MG 0800 01/28 0800 AC PO Hydrocortisone 50 MG Q12 01/27 1000 DC 01/27 Sodium Succinate IV 2114 Hydromorphone HCl 50 MG Q24H PRN 01/27 0830 AC Sodium Chloride 45 ML IV Hydromorphone HCl 6 MG Q6P PRN 01/26 1600 AC 01/27 PO 1818 Lisinopril 10 MG DAILY 01/27 1000 DC PO Lisinopril 10 MG DAILY 01/27 1000 AC 01/27 PO 0946 Montelukast Sodium 10 MG QPM 01/26 2200 AC 01/27 PO 2114 Nicotine 14 MG DAILY 01/27 1152 AC 01/27 TOP 1407 Omeprazole 40 MG DAILY AC 01/27 0700 AC 01/28 PO 0552 Ondansetron HCl 4 MG Q6P PRN 01/26 1600 AC IV Polyethylene Glycol 17 GM DAILY 01/27 1000 DC PO Polyethylene Glycol 17 GM DAILY 01/27 1000 AC 01/27 PO 0946 Pregabalin 150 MG BID 01/26 2200 AC 01/27 PO 2113 Sertraline HCl 25 MG DAILY 01/27 1000 DC PO Sertraline HCl 25 MG DAILY 01/27 1000 AC 01/27 PO 0945 Sodium Chloride 1,000 ML .Q20H 01/26 1600 AC 01/27 IV 1654 Sumatriptan Succinate 50 MG DAILY NEEDED PRN 01/26 1600 AC PO Tiotropium [place] 1 PUF DAILY 01/27 1000 DC INH Tiotropium [place] 1 PUF DAILY 01/27 1000 AC 01/27 INH 0944 Vancomycin HCl 1,000 MG Q12 01/26 2200 DC 01/27 Dextrose/Water 250 ML IV 01/27 1059 0939 Results Last 48 Hours of Labs: Laboratory Tests 01/28 01/27 01/27 0615 1145 0614 Chemistry Sodium (137 - 145 mmol/L) 137 134 L Potassium (3.5 - 5.1 mmol/L) 3.5 3.9 Chloride (98 - 107 mmol/L) 103 104 Carbon Dioxide (22 - 30 mmol/L) 28 23 Anion Gap (5 - 16) 6 7 BUN (7 - 17 mg/dL) 11 12 Creatinine (0.5 - 1.0 mg/dL) 0.5 0.6 Estimated GFR (>60 ml/min) > 60 > 60 BUN/Creatinine Ratio (7 - 25 %) 22.0 20.0 Hematology CBC w Diff Pending NO MAN DIFF REQ WBC (4.8 - 10.8 /CUMM) Pending 9.0 RBC (4.20 - 5.40 /CUMM) Pending 3.49 L Hgb (12.0 - 16.0 G/DL) Pending 9.6 L Hct (37 - 47 %) Pending 29.8 L MCV (81.0 - 99.0 FL) Pending 85.3 MCH (27.0 - 31.0 PG) Pending 27.6 RDW (11.5 - 14.5 %) Pending 15.1 H Plt Count (130 - 400 /CUMM) Pending 259 MPV (7.4 - 10.4 FL) Pending 7.0 L Gran % (42.2 - 75.2 %) 77.7 H Lymphocytes % (20.5 - 51.1 %) 12.7 L Monocytes % (1.7 - 9.3 %) 8.8 Eosinophils % (0 - 5 %) 0 Basophils % (0.0 - 2.0 %) 0.8 Absolute Granulocytes (1.4 - 6.5 /CUMM) 7.0 H Absolute Lymphocytes (1.2 - 3.4 /CUMM) 1.1 L Absolute Monocytes (0.10 - 0.60 /CUMM) 0.8 H Absolute Eosinophils (0.0 - 0.7 /CUMM) 0 Absolute Basophils (0.0 - 0.2 /CUMM) 0.1 PUBS MCHC (33.0 - 37.0 G/DL) Pending 32.4 L 01/27 01/26 01/26 01/26 01/26 0600 2020 UNK UNK UNK Chemistry Sodium (137 - 145 mmol/L) Cancelled 135 L 135 L 135 L Cancelled Potassium (3.5 - 5.1 mmol/L) Cancelled 4.0 3.9 3.7 Cancelled Chloride (98 - 107 mmol/L) Cancelled 103 103 104 Cancelled Carbon Dioxide (22 - 30 mmol/L) Cancelled 25 27 25 Cancelled Anion Gap (5 - 16) Cancelled 7 5 6 Cancelled BUN (7 - 17 mg/dL) Cancelled 11 12 Creatinine (0.5 - 1.0 mg/dL) Cancelled 0.5 0.5 Estimated GFR (>60 ml/min) > 60 > 60 BUN/Creatinine Ratio (7 - 25 %) Cancelled 22.0 24.0 Assessment/Plan Assessment/Plan 61yo F POD#2 s/p acdf C3-C5 and removal of bone spur right foot, exostectomy. AVSS, patient stable. - Dr. Grier to make changes to pain meds - ALPS - I/O's - continue brace - dressing change by Dr. Grier - ANGELINE and ambulate - neuro checks - Will d/w attending Core Measures/Miscellaneous Venous Thromboembolism VTE Risk Factors: Age > 40, Surgery VTE Contraindications: Hypersensitivity Heparin VTE Diagnosis: No VTE Type: NONE VTE Confirmed by (Test): NONE Beta Tee Is Beta Tee a Home Med? No Antibiotics Is Patient on Antibiotics? No
--- NOTE | 2017-01-28 08:39 | PN- Endocrinology ---
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 She has had history of chronic steroid uses due to asthma and her skin condition. In addition, patient is on pain medication chronically. On 12/17/2016, patient was put on Hydrocortisone replacement--- Hydrocortisone 15 mg at 8 am and 5 mg at 4 pm. She underwent cervical spinal surgery on 01/26/2017. Patient received stress dose of steroid-- Hydrocortisone 100 mg iv x 3 times. Hydrocortisone was decreased to 50 mg iv every 12 hours on 01/27/2017. She probably will be discharged to rehab today. am lab showed sodium 137. Plan: 1. stop hydrocortisone iv today; 2. start Hydrocortisone 20 mg at 8 am and 10 mg at 4pm daily. 3. I will recommend patient take Hydrocortisone 20 mg at 8 am and 10 mg at 4 pm when she is in rehab. 4. However, when she is ready to be discharged from rehab to home, I will further decrease Hydrocortisone to 15 mg at 8 am and 5 mg at 4 pm. 5. f/u in office after she is discharged from rehab. Subjective Subjective: She has been feeling well. Objective Last 24 Hrs of Vital Signs/I&O Vital Signs Date Time Temp Pulse Resp B/P Pulse O2 O2 Flow FiO2 Ox Delivery Rate 01/28 0745 98.8 67 20 130/84 96 Room Air 01/27 2238 98.1 72 20 110/60 96 / 2005 99 Room Air 01/27 1437 97.7 68 20 118/70 100 Room Air 01/27 1231 Room Air Room Air 01/27 1214 Room Air Room Air 01/27 1108 Room Air 03 1107 96 Room Air 03 0952 97.9 76 18 122/74 / 0951 97.9 76 18 122/74 96 Room Air Room Air 01/27 0946 76 122/74 Intake & Output 01/28 1600 01/28 0800 01/28 0000 Intake Total 880 990 Output Total 2500 1150 Balance -1620 -160 Intake, IV 400 150 Intake, Oral 480 840 Output, Urine 2500 1150 Results Pertinent Lab/Con Results: Laboratory Tests 01/28 01/27 0615 1145 Chemistry Sodium (137 - 145 mmol/L) 137 134 L Potassium (3.5 - 5.1 mmol/L) 3.5 3.9 Chloride (98 - 107 mmol/L) 103 104 Carbon Dioxide (22 - 30 mmol/L) 28 23 Anion Gap (5 - 16) 6 7 BUN (7 - 17 mg/dL) 11 12 Creatinine (0.5 - 1.0 mg/dL) 0.5 0.6 Estimated GFR (>60 ml/min) > 60 > 60 BUN/Creatinine Ratio (7 - 25 %) 22.0 20.0 Hematology CBC w Diff Pending WBC Pending RBC Pending Hgb Pending Hct Pending MCV Pending MCH Pending RDW Pending Plt Count Pending MPV Pending PUBS MCHC Pending
[2017-01-28 10:30] VITALS: BP 122/74
[2017-01-28 15:04] VITALS: BP 122/78
[2017-01-28 19:00] VITALS: BP 122/78; BP 130/80
[2017-01-28 22:45] VITALS: BP 140/88
--- NOTE | 2017-01-29 00:25 | NUR ---
PATIENT ALERT AND ORIENTED X 3. DENIES CHEST PAIN. + PULSES STEADY GAIT W/ RW. DSGS ARE CLEAN, DRY, AND INTACT. HARD COLLAR TO NECK IN PLACE. MEDICATION GIVEN FOR PAIN. WILL CONTINUE TO MONITOR
--- NOTE | 2017-01-29 00:27 | NUR ---
NURSING NOTE: AFTER PT WENT TO BATHROOM SHE C/O OF DIFFICULTY HAVING A BM. PT REFUSED TO TAKE COLACE AND MIRALAX. PT STATES THAT THE ONLY MED SHE TAKES AT HOME THAT WORKS IS MILK OF MAG. SURGICAL PA WAS PAGED AND NOTIFIED AND ORDERED MILK OF MAG FOR PT. WILL CONTINUE TO MONITOR.
[2017-01-29 04:00] VITALS: BP 158/93
[2017-01-29] MEDS ORDERED: CORTEF5 M1 PO ×2 (06:03→06:04)
--- NOTE | 2017-01-29 06:12 | Patient Discharge Instructions ---
Discharge Instructions General Discharge Information You were seen/treated for: Neck pain with radiculopathy, right foot pain You had these procedures: acdf, right calcaneal osteotomy Watch for these problems: increasing pain, redness warmth, swelling, drainage of any type from incision. Inability to bear weight with bilateral upper and lower extremity Special Instructions: Upon discharge from rehab, decrease hydrocortisone tab from 20 mg at 8 am and 10 mg at 4 pm, to 15 mg at 8 am and 5 mg at 4 pm per recommendations made by Dr. Rosario Diet Continue normal diet: Yes Recommended Diet: Heart Healthy Activity Full Activity/No Limits: No Activity Self Limited: Yes Pounds, do NOT lift more than: 5 Acute Coronary Syndrome Inclusion Criteria At DC or during hospital stay patient has or had the following: ACS DIAGNOSIS No Discharge Core Measures Meds if any: Prescribed or Continued at Discharge Meds if any: NOT Prescribed or Continued at Discharge Congestive Heart Failure Inclusion Criteria At DC or during hospital stay patient has or had the following: CHF DIAGNOSIS No Discharge Core Measures Meds if any: Prescribed or Continued at Discharge Meds if any: NOT Prescribed or Continued at Discharge Cerebrovascular accident Inclusion Criteria At DC or during hospital stay patient has or had the following: CVA/TIA Diagnosis No Discharge Core Measures Meds if any: Prescribed or Continued at Discharge Meds if any: NOT Prescribed or Continued at Discharge Venous thromboembolism Inclusion Criteria VTE Diagnosis No VTE Type NONE VTE Confirmed by (Test) NONE Discharge Core Measures - Per Current guidelines, there needs to be overlap - treatment for the first 5 days of Warfarin therapy. - If discharged on Warfarin prior to 5 days of - overlap therapy, the patient will need to be - assessed for post discharge needs including - *Post discharge parental anticoagulation - *Warfarin and/or parental anticoagulation education - *Follow up date to check INR post discharge At least 5 days overlap therapy as Inpatient No Meds if any: Prescribed or Continued at Discharge Note: Overlap Therapy is Warfarin and Anticoagulant Meds if any: NOT Prescribed or Continued at Discharge
--- NOTE | 2017-01-29 06:19 | Surgical Discharge Summary ---
Visit Information Visit Dates Admission Date: 01/26/17 Discharge Date: 01/29/2017 History of Present Illness Chief Complaint: Neck pain due to cervical spinal stenosis, foot pain right due to calcaneal osteophyte Medical History Blood Transfusion Hx: Yes Neurological: dizziness, NUMB/TINGLE IN HANDS EENT: allergies, environmental Cardiovascular: hypertension, hyperlipidemia Respiratory: asthma, COPD Gastrointestinal: constipation, GERD Hepatic: NONE Renal: nephrolithiasis Musculoskeletal: chronic back pain, osteoarthritis, osteoporosis, fibromyalgia Psychiatric: anxiety, bipolar disease, depression, HX OF ETOH ABUSE Endocrine: HYPONATREMIA secondary adrenal insufficiency Blood Disorders: NONE Cancer(s): NONE 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 History of MRSA: Yes History of VRE: No History of CDIFF: No Isolation History: Contact Surgical History Pertinent Surgical History: HOWIE SCREW R HEEL PIN R WRIST R HIP/GIRDLE IMPLANT Family History Relations & Conditions If Any: MOTHER Cervical cancer FH: breast cancer FHx: thyroid disease FATHER Osteoarthritis SISTER Family hx-psychiatric condition Psychosocial History Where Do You Live? Home Who Do You Live With? Patient/Self Services at Home: None What is Your Primary Language? Welsh Review of Systems: see h&p Hospital Course Course Attending Physician: MARYLOU CONNOR,AKILAH Pearson Primary Care Physician: MARYURI CONNOR,[facility] Course: Patient was admitted to hospital on 01/26/2017 for acdf and right foot calcaneal osteotomy. She tolerated the procedure well. She was transferred to general surgical floor. Her diet was advanced and tolerated. Her pain was well controlled. She voided spontaneously. Her vital signs were stable and within normal limits. She was evaluated and treated by pt. She was deemed appropriate for discharge to rehab. She is being followed by Dr. Rosario for endocrinology due to adrenal insufficiency. Allergies: Coded Allergies: Penicillins (Intermediate, HEADACHE AND ITCHY 02/04/16) Sulfa (Sulfonamide Antibiotics) (Intermediate, HEADACHE AND ITCHY 02/04/16) aspirin (Intermediate, ASTHMA 02/04/16) erythromycin base (Intermediate, HIVES 02/04/16) latex (Intermediate, ITCHY AND WEEPY SORES 02/04/16) streptomycin (Intermediate, HEADACHE AND ITCHY 02/04/16) tetanus toxoid, adsorbed (Intermediate, I WAS FREEZING 02/04/16) Uncoded Allergies: TALCUM POWDER (Intermediate, RASH 01/21/17) Disposition Summary Disposition Principal Diagnosis: Cervical spinal stenosis Additional Diagnosis: calcaneal osteophyte right foot Discharge Disposition: SNF Addendum Note Addendum I was assigned to this discharge summary by mistake. Discharge Instructions General Discharge Information Code Status: Full Code Patient's Diet: Heart healthy, advance as tolerated Patient's Activity: WBAT, hard collar at all times Follow-Up Instructions/Appts: Please arrange follow up appointments with Dr. Grier and Dr. Up. Please contact Dr. Rosario's office for further recommendations regarding hyponatremia and adrenal insufficiency. Per Dr. Rosario's recommendations regarding hydrocortisone dosing, patient is to receive 20 mg po at 8 am and 10 mg po at 4 pm while in rehab, that dose will be decreased to 15 mg po at 8 amd and 5 mg po at 4 pm when being discharged from rehab, per Dr. Rosario. Medications at Discharge Discharge Medications: Stop taking the following medications: FLUTICASONE/SALMETEROL (Advair 250-50 Diskus) 1 DSK DSK Inhale through mouth TWICE DAILY Meloxicam (Meloxicam) 7.5 MG TABLET ORAL DAILY Qty = 30 Gabapentin (Gabapentin) 300 MG CAPSULE ORAL THREE TIMES DAILY Hydrocortisone (Hydrocortisone) 5 MG TABLET ORAL DAILY [NORCO] ORAL TWICE DAILY Continue taking these medications: Alendronate Sodium (Alendronate Sodium) 70 MG TABLET 1 Tablet ORAL EVERY TUESDAY Instructions: in the morning, at least 30 minutes before the first food, beverage, or medication of the day Comments: DID NOT RECEIVE WHILE IN HOSPITAL Tiotropium [place] (Spiriva) 18 MCG CAP.W.DEV 1 PUFF Inhale through mouth DAILY Comments: DID NOT RECEIVE WHILE IN HOSPITAL Polyethylene Glycol 3350 (Miralax) 17 GRAM/DOSE POWDER 17 Gram ORAL DAILY Instructions: mix with water, juice, soda, coffee or tea Comments: Last Taken: 02/09/16 Time: 11:30 AM Albuterol Sulfate (Proair Hfa) 8.5 GM HFA.AER.AD 2 Puff Inhale through mouth 4 TIMES A DAY as needed for COPD Comments: Last Taken:RESPIRATORY TREATMENTS GIVEN IN HOSPITAL Time: Sumatriptan Succinate (Imitrex) 50 MG TAB 1 Tablet ORAL As Directed as needed for MIGRAINES Qty = 9 Comments: DID NOT RECEIVE WHILE IN HOSPITAL Hydroxyzine HCl (Hydroxyzine HCl) 25 MG TABLET 2 Tablet ORAL Q8H as needed for ITCHING Qty = 90 Comments: Last Taken:NOT TAKEN IN HOSPITAL Time: Diclofenac Sodium (Voltaren) 100 GM GEL..GRAM. 1 Gram On the skin Q8H Qty = 300 Instructions: apply to affected area(s) Comments: Last Taken:NOT TAKEN IN HOSPITAL Time: Betamethasone Valerate (Betamethasone Valerate) 60 ML LOTION 1 Application On the skin As Directed as needed for ITCHING Qty = 60 Comments: Last Taken:NOT TAKEN IN HOSPITAL Time: Ipratropium/Albuterol Sulfate (Iprat-Albut 0.5-3(2.5) MG/3 Ml) 3 ML AMPUL.NEB 1 Amp Inhale through mouth DAILY as needed for COPD Comments: Last Taken:RESPIRATORY TREATMENTS GIVEN IN HOSPITAL Time: Hydrocodone/Acetaminophen ([place] 10-325 Tablet) 1 EACH TABLET 2 Tablet ORAL TWICE DAILY Comments: Last Taken:NOT TAKEN IN HOSPITAL Time: Hydrocodone/Acetaminophen ([place] 10-325 Tablet) 1 EACH TABLET 1 Tablet ORAL DAILY as needed for pain Comments: Last Taken:NOT TAKEN IN HOSPITAL Time: Simvastatin (Simvastatin*) 20 MG TABLET 1 Tablet ORAL Every night Qty = 90 Comments: LIPITOR WAS GIVEN IN HOSPITAL LAST DOSE 3317 AT 5:00 PM Lisinopril (Lisinopril) 10 MG TABLET 1 Tablet ORAL DAILY Qty = 90 Comments: Last Taken: 01/28/17 Time: 10:00 AM Dexlansoprazole (Dexilant) 60 MG CAP.DR.BP 1 Capsule ORAL Every Morning Qty = 60 Comments: Last Taken:NOT TAKEN IN HOSPITAL Time: Triamcinolone Acetonide (Triamcinolone Acetonide) 15 GM CREAM..G. 1 Application On the skin 4 TIMES A DAY Qty = 45 Comments: NOT TAKEN IN HOSPITAL Pregabalin (Lyrica) 150 MG CAPSULE 1 Capsule ORAL TWICE DAILY Qty = 60 Comments: Last Taken: 01/29/17 Time: 08:00 AM Montelukast Sodium (Montelukast Sodium) 10 MG TABLET 1 Tablet ORAL Every night Qty = 30 Comments: Last Taken: 01/28/17 Time: 22:00 Dicyclomine HCl (Dicyclomine HCl) 10 MG CAPSULE 1 Capsule ORAL THREE TIMES DAILY as needed for GI Qty = 90 Comments: Last Taken:NOT TAKEN IN HOSPITAL Time: Divalproex Sodium (Divalproex Sodium ER) 250 MG TAB.ER.24H 1 Tablet ORAL TWICE DAILY Days = 30 Comments: LAST DOSE TAKEN 01/29/17 AT 10:00 AM Mirtazapine (Remeron) 15 MG TABLET 1 Tablet ORAL Every night Days = 30 Comments: NOT GIVEN WHILE HOSPITALIZED Tizanidine HCl (Tizanidine HCl) 2 MG TABLET 2.5 Tablet ORAL As Directed Comments: NOT GIVEN WHILE HOSPITALIZED Estrogens, Conjugated (Premarin) 30 GM CREAM.APPL 1 Application On the skin Every night Qty = 30 Comments: Last Taken:NOT TAKEN IN HOSPITAL Time: Hydrocortisone (Proctosol-Hc) 28.35 GM CREAM.APPL 1 Application RECTAL As Directed as needed for HEMORRHOIDS Qty = 30 Instructions: apply to affected area(s) Comments: PER PT AFTER BM AND PRN NOT GIVEN WHILE HOSPITALIZED Gabapentin (Neurontin) 300 MG CAPSULE 1 Capsule ORAL THREE TIMES DAILY Qty = 120 Comments: Last Taken: 01/29/17 Time: 10:00 AM Naloxegol Oxalate (Movantik) 25 MG TABLET 1 Tablet ORAL DAILY Qty = 30 Comments: Last Taken:NOT TAKEN IN HOSPITAL Time: Fluticasone/Salmeterol (Advair 250-50 Diskus) 250 MCG-50 MCG/DOSE BLST.W.DEV 1 PUFF ORAL TWICE DAILY Comments: SYMBICORT GIVEN WHILE HOSPITALIZED LAST DOSE 01/29/17 AT 10:00 AM Clonazepam (Clonazepam) 0.5 MG TABLET 1 Tablet ORAL NIGHTLY [SODIUM CHLORIDE] 1,000 MG ORA 1 Tablet ORAL TWICE DAILY Comments: NOT GIVEN WHILE HOSPITALIZED Oxymorphone HCl (Opana) 10 MG TABLET 1 Tablet ORAL EVERY 6 as needed for PAIN Comments: NOT GIVEN WHILE HOSPITALIZED Sertraline HCl (Sertraline HCl) 25 MG TABLET 1 Tablet ORAL DAILY Comments: LAST DOSE GIVEN 01/29/17 AT 10:00 AM Start taking the following new medications: Celecoxib (Celebrex) 100 MG CAPSULE 200 Milligram ORAL DAILY as needed for pain Days = 30 No Refills Comments: LAST DOSE GIVEN 01/29/17 AT 10:00 AM Diazepam (Valium) 10 MG TABLET 5 Milligram ORAL EVERY 8 HOURS NEEDED as needed for SPASMS Days = 7 No Refills Comments: LAST DOSE GIVEN 01/29/17 AT 11:00 AM Hydrocortisone (Cortef) 5 MG TABLET 4 Tablet ORAL DAILY @8AM Qty = 40 No Refills Comments: LAST DOSE GIVEN 01/29/17 AT 9:00 AM Hydrocortisone (Cortef) 5 MG TABLET 2 Tablet ORAL 4PM Qty = 20 No Refills Comments: LAST DOSE GIVEN 01/28/17 AT 16:00
[2017-01-29 07:47] VITALS: BP 118/81
[2017-01-29 09:18] LABS: ABSOLUTE BASOPHIL COUNT 0.1 /CUMM (0.0-0.2); ABSOLUTE EOSINOPHIL COUNT 0.1 /CUMM (0.0-0.7); ABSOLUTE LYMPH COUNT 2.8 /CUMM (1.2-3.4); ABSOLUTE MONOCYTE COUNT 0.7 /CUMM (0.10-0.60); BASOPHIL % 1.5 % (0.0-2.0); EOSINOPHIL % 1.1 % (0-5); GRANULOCYTE % 44.7 % (42.2-75.2); MEAN CORPUSCULAR HGB 28.1 PG (27.0-31.0); MEAN CORPUSCULAR HGB CONC 33.2 G/DL (33.0-37.0); MEAN CORPUSCULAR VOLUME 84.6 FL (81.0-99.0); MEAN PLATELET VOLUME 7.4 FL (7.4-10.4); PLATELET COUNT 332 /CUMM (130-400); RBC DISTRIBUTION WIDTH 14.6 % (11.5-14.5); RED BLOOD CELL CT 3.95 /CUMM (4.20-5.40); WHITE BLOOD CELL COUNT 6.7 /CUMM (4.8-10.8)
--- NOTE | 2017-01-29 10:25 | PN- Student ---
KEHINDE PENA 01/29/17 0958: Subjective Subjective: Patient reports no acute events overnight and has no complaints. She reports having just walked with physical therapy and is now questioning the neccessity for rehab care. She states her pain is well controlled. Her foot pain is worse after walking and at its worse is a 5/10. She states her neck pain is excrutiating when she wakes up "sometimes a 15." She reports she has difficulty swallowing but that the valium helps with it. She would like to have the valium prior to breakfast so she can eat breakfast. She denies any chest pain, shortness of breath, nausea, vomiting, fevers/chills, headache, dysuria, numbness or tingling in extremities. She reports bowel movements and flatus. Objective Objective: Vitals: BP: 104/62 Pulse: 70 Resp: 20 Temp: 97.7F SpO2: 98% RA Physical Exam: General: Well-appearing, in no acute distress. Alert and oriented to person, place, time and event. Skin: [place] warm and dry. Head: Normocephalic, atraumatic- held midline in cervical collar. Neck: Incision covered by dressing with no obvious drainage. Eyes: PERRL, EOMI Cardiac: Regular rate and rhythm. Normal S1 and S2. No murmurs, rubs or gallops. Pulmonary: Clear to ausculation bilaterally. No wheezes, rales or rhonchi. Abdomen: Non-distended, non-tender to palpation. Normoactive bowel sounds, no masses. Extremities: 5/5 strength in all 4 extremites. 2+ radial and dorsalis pedis pulses bilaterally. Right foot covered in dressing and bandage with no obvious drainage. Good cap refill in toes. No calf tenderness, swelling or edema. Results Results: Laboratory Tests 01/29/17 0620: Anion Gap 10, Estimated GFR > 60, BUN/Creatinine Ratio 18.6, CBC w Diff Pending, WBC Pending, RBC Pending, Hgb Pending, Hct Pending, MCV Pending, MCH Pending, RDW Pending, Plt Count Pending, MPV Pending, PUBS MCHC Pending 01/28/17 0615: Anion Gap 6, Estimated GFR > 60, BUN/Creatinine Ratio 22.0, CBC w Diff NO MAN DIFF REQ, RBC 3.16 L, MCV 83.9, MCH 27.8, RDW 15.1 H, MPV 7.2 L, Gran % 69.1, Lymphocytes % 21.0, Monocytes % 8.7, Eosinophils % 0.1, Basophils % 1.1, Absolute Granulocytes 4.5, Absolute Lymphocytes 1.4, Absolute Monocytes 0.6, Absolute Eosinophils 0, Absolute Basophils 0.1, PUBS MCHC 33.2 01/27/17 1145: Anion Gap 7, Estimated GFR > 60, BUN/Creatinine Ratio 20.0 01/27/17 0614: CBC w Diff NO MAN DIFF REQ, RBC 3.49 L, MCV 85.3, MCH 27.6, RDW 15.1 H, MPV 7.0 L, Gran % 77.7 H, Lymphocytes % 12.7 L, Monocytes % 8.8, Eosinophils % 0, Basophils % 0.8, Absolute Granulocytes 7.0 H, Absolute Lymphocytes 1.1 L, Absolute Monocytes 0.8 H, Absolute Eosinophils 0, Absolute Basophils 0.1, PUBS MCHC 32.4 L 01/27/17 0600: Sodium Cancelled, Potassium Cancelled, Chloride Cancelled, Carbon Dioxide Cancelled, Anion Gap Cancelled, BUN Cancelled, Creatinine Cancelled, BUN/ Creatinine Ratio Cancelled 01/26/17 2020: Anion Gap 7, Estimated GFR > 60, BUN/Creatinine Ratio 22.0 Assessment/Plan Assessment: Patient is a 61 year old female with a history of arrythmia, alcohol use d/o, asthma, hypertension, bipolar d/o, copd, osteoarthritis, GERD, hyperlipidema, anemia, chronic pain, fractures of patella, fibula and foot bones. Patient is POD#3 s/p anterior cervical disectomy and fusion of C3-C4 and C4-C5 in conjunction with osteotomy of right foot bone spurr without hospital stay complications. Plan: -Continue pain management as previously outlined. -Continue ALPs, out of bed ambulation as permitted for dvt prophylaxis. -Continue physical therapy. -Continue home meds as scheduled. -Continue full diet. Will discuss above with PA surgical team. Kehinde PATINO-S2 FELI PALOMARES 01/29/17 1336: Assessment/Plan Plan: agree with above PA-S note dressings changed d/c to str today
[2017-01-29 12:20] VITALS: BP 104/62
--- NOTE | 2017-01-29 12:29 | PN- Endocrinology ---
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 She has had history of chronic steroid uses due to asthma and her skin condition. In addition, patient is on pain medication chronically. On 12/17/2016, patient was put on Hydrocortisone replacement--- Hydrocortisone 15 mg at 8 am and 5 mg at 4 pm. She underwent cervical spinal surgery on 01/26/2017. Patient received stress dose of steroid-- Hydrocortisone 100 mg iv x 3 times. Hydrocortisone was decreased to oral dose 20 mg at 8 am and 10 mg at 4 pm on 01/28. am lab showed sodium 138, K 32.. Her BP has been stable. Plan: 1. I will recommend patient take Hydrocortisone 20 mg at 8 am and 10 mg at 4 pm when she is in rehab. 2. However, when she is ready to be discharged from rehab to home, I will further decrease Hydrocortisone to 15 mg at 8 am and 5 mg at 4 pm. 3. replete K. 4. f/u in office after she is discharged from rehab. Subjective Subjective: She is going to rehab today. Objective Last 24 Hrs of Vital Signs/I&O Vital Signs Date Time Temp Pulse Resp B/P Pulse O2 O2 Flow FiO2 Ox Delivery Rate 01/29 1220 97.7 70 20 104/62 / 0844 70 104/62 / 0823 98 Room Air / 0747 97.7 86 20 118/81 96 Room Air / 0400 97.6 70 18 158/93 99 Room Air 01/28 2245 78 140/88 01/28 2009 99 Room Air 01/28 1900 97.7 68 20 122/78 / 1900 97.8 72 20 130/80 98 Room Air 03/ 1504 97.7 68 20 122/78 99 Intake & Output 01/29 1600 / 0800 01/29 0000 Intake Total 400 900 Output Total 1200 Balance 400 -300 Intake, IV 400 Intake, Oral 900 Number 1 Bowel Movements Output, Urine 1200 Results Pertinent Lab/Con Results: Laboratory Tests 01/29 0620 Chemistry Sodium (137 - 145 mmol/L) 138 Potassium (3.5 - 5.1 mmol/L) 3.2 L Chloride (98 - 107 mmol/L) 95 L Carbon Dioxide (22 - 30 mmol/L) 33 H Anion Gap (5 - 16) 10 BUN (7 - 17 mg/dL) 13 Creatinine (0.5 - 1.0 mg/dL) 0.7 Estimated GFR (>60 ml/min) > 60 BUN/Creatinine Ratio (7 - 25 %) 18.6 Hematology CBC w Diff Pending WBC Pending RBC Pending Hgb Pending Hct Pending MCV Pending MCH Pending RDW Pending Plt Count Pending MPV Pending PUBS MCHC Pending
[2017-01-29 12:47] LABS: HEMATOCRIT 33.4 % (37-47)
[2017-01-29] MEDS ORDERED: VALIUM10 M1 PO (13:00)
[2017-01-29] MEDS ORDERED: CELEBREX100 M1 PO (13:00)
== END 2017-01-29 15:50 | DRG 472 ==
LOC: ENRESERVTM → ENRESERVDT → ENPENDDIS 01:17 → SDA 01:17 → 2NB 01:17
PROVIDERS: Nurse Practitioner; ADMIT Orthopaedic Surgery Orthopaedic Surgery of the Spine
PROC: 0RG20K0 Fusion of 2 or more Cervical Vertebral Joints with Nonautologous Tissue Substitute, Anterior Approach, Anterior Column, Open Approach (ICD-10-PCS; principal; 2017-01-26)
PROC: 0RT30ZZ Resection of Cervical Vertebral Disc, Open Approach (ICD-10-PCS; principal; 2017-01-26)
PROC: 0QBL0ZZ Excision of Right Tarsal, Open Approach (ICD-10-PCS; 2017-01-26)
DX: M43.12 Spondylolisthesis, cervical region (principal); E27.49 Other adrenocortical insufficiency; E87.1 Hypo-osmolality and hyponatremia; M77.51 Other enthesopathy of right foot and ankle; M50.321 Other cervical disc degeneration at C4-C5 level
CPT/HCPCS: 2NBP; 36415; 72040; 82436; 87086; 88304; 97116-GO; 97161-GP; 97530-GO; C1713; J0131; J1170; J1720; J2405; J3370; J3490; J7060